=== PATIENT | female | born 1975 | race Caucasian/White ===

== ENCOUNTER → 2016-07-29 | Outpatient (REF) | payer BC, OTHER ==
[~2016-07-29] MED LIST: COLA100C PO; IBUP-1114 PO; IBUP600T26 PO; LEVO25TA5 PO; LORT1TAB2 PO; LORT5TAB PO; PRENTAB9 PO; RANI1TAB6 PO; ZOFR4TAB3 PO
== END ==
LOC: M LAB REF 13:18
PROVIDERS: ATTEND Obstetrics & Gynecology
DX: Z12.4 Encounter for screening for malignant neoplasm of cervix (principal); R87.610 Atypical squamous cells of undetermined significance on cytologic smear of cervix (ASC-US)

== ENCOUNTER → 2016-08-17 | Outpatient (REF) | payer BC, OTHER | LOC: M LAB REF 09:26 | PROVIDERS: ATTEND Physician Assistant | DX: J02.9 Acute pharyngitis, unspecified (principal) ==

== ENCOUNTER 2016-10-07 17:03 | Emergency (ER) | payer BC, OTHER ==
[~2016-10-07] VITALS: Ht 154.9 cm; Wt 99.8 kg
[2016-10-07] MEDS ORDERED: NS 1,000 ML IV ONE (17:30)
[2016-10-07 18:15] LABS: BASO # 0.1 K/mm3 (0.0-0.2); EOS # 0.7 K/mm3 (0.0-0.50); EOS % 9.2 % (0.0-3.0); LARGE UNSTAINED CELL # 0.1 K/mm3 (0.0-0.4); LARGE UNSTAINED CELL % 1.1 % (0.0-4.0); LYMPH # 1.9 K/mm3 (1.5-4.5); LYMPH % 24.2 % (24.0-44.0); MEAN CORPUSCULAR HEMOGLOBIN 27.5 pg (27.0-33.0); MEAN CORPUSCULAR VOLUME 83.4 fl (80.0-96.0); MONO # 0.3 K/mm3 (0.0-0.8); MONO % 3.7 % (0.0-5.0); NEUTROPHILS # 4.7 K/mm3 (1.8-7.7); NEUTROPHILS % 60.7 % (36.0-66.0); PLATELET COUNT, AUTOMATED 190 k/mm3 (150-450); RED CELL DISTRIBUTION WIDTH 13.4 % (11.5-14.5); WHITE BLOOD COUNT 7.7 K/mm3 (4.0-10.0)
[2016-10-07 18:24] LABS: ANION GAP 6 MEQ/L (8-16); BLOOD UREA NITROGEN 16 MG/DL (7-18); CALCIUM LEVEL 8.1 MG/DL (8.5-10.1); CARBON DIOXIDE LEVEL 29 MEQ/L (21-32); CHLORIDE LEVEL 105 MEQ/L (98-107); GLOMERULAR FILTRATION RATE > 60.0 (>58); GLUCOSE, FASTING 102 MG/DL (70-105); SODIUM LEVEL 140 MEQ/L (136-145)
--- NOTE | 2016-10-07 18:24 | ECGEPIP ---
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
[2016-10-07] MEDS ORDERED: ISOVUE-370 76% 100ML VIAL (Q9967) As Ordered ONE (18:28)
--- NOTE | 2016-10-07 18:59 | REP ---
Clinical: Left upper extremity weakness . Comparison: 09/10/2010 . Findings: The ventricles, sulci, and cisterns are normal in position and appearance. Senior-white differentiation is maintained. No acute intracranial hemorrhage, mass/mass effect, pathology or trauma/injury. No evidence for acute infarction. No extra-axial fluid collection. Calvarium is intact. Paranasal sinuses and mastoid air cells are clear. Impression: Normal noncontrast head CT. No evidence for acute intracranial pathology or trauma/injury. Signed by John Dubois MD 10/07/2016 06:51 P
--- NOTE | 2016-10-07 19:02 | REP ---
Clinical: Left upper extremity weakness. Technique: Axial noncontrast images from the skull base to the thoracic inlet with coronal and sagittal re-formations. Comparison: 09/17/2010. Findings: Straightening of normal lordosis likely secondary to positioning and less likely pain/spasm. Mild age-related degenerative change at the C5-6 level with anterior spurring and minimal endplate sclerosis is appreciated. Very subtle chronic 1 mm anterolisthesis at the C4-5 level is unchanged compared to 2010. There is no evidence for acute fracture / compression injury or subluxation. Posterior elements and spinous processes appear intact. Spinal canal is patent. The paravertebral soft tissues are normal. Evaluation is suboptimal in regards to the intervertebral discs and spinal cord/canal contents. Impression: Minimal stable age-related degenerative changes. No acute fracture / compression injury or subluxation. Evaluation of the intervertebral discs and spinal cord significantly limited and may warrant MRI for further investigation. Signed by John Dubois MD 10/07/2016 06:54 P
--- NOTE | 2016-10-07 19:04 | REP ---
Clinical: Chest pain. Technique: Axial contrast enhanced images from the thoracic inlet to the upper abdomen using 100 ml Isovue 370 intravenous contrast material with multiplanar re-formations. Findings: Satisfactory enhancement of the pulmonary vasculature is achieved and no filling defects are identified to suggest pulmonary embolus. Further evaluation of the mediastinum demonstrates normal thoracic aorta, heart and pericardium. The bilateral lung anderson are well aerated and clear without consolidation pleural effusion or pneumothorax. Tracheobronchial tree is patent. No nodule or mass lesion is identified. No adenopathy noted. Surrounding musculoskeletal structures intact Impression: No evidence for pulmonary embolus. No acute mediastinal or pleural parenchymal process. Signed by John Dubois MD 10/07/2016 06:55 P
[2016-10-07 21:01] VITALS: BP 158/62
== END 2016-10-07 21:04 | disposition home or self-care (01) ==
LOC: M ED 17:53
DX: M79.602 Pain in left arm (principal)
CPT/HCPCS: 70450; 71275; 72125; 80048; 82550; 82553; 85025; 93005; 99283; Q9967

== ENCOUNTER → 2017-03-06 | Outpatient (REF) | payer BC, OTHER ==
[~2017-03-06] MED LIST changes: -COLA100C PO; +COLA100C5 PO; +IBUP-1022 PO; -IBUP600T26 PO
[2017-03-06 19:41] LABS: BASO # 0.1 K/mm3 (0.0-0.2); EOS # 0.1 K/mm3 (0.0-0.50); EOS % 1.9 % (0.0-3.0); LARGE UNSTAINED CELL # 0.1 K/mm3 (0.0-0.4); LARGE UNSTAINED CELL % 1.5 % (0.0-4.0); LYMPH # 1.2 K/mm3 (1.5-4.5); LYMPH % 16.6 % (24.0-44.0); MEAN CORPUSCULAR HEMOGLOBIN 27.9 pg (27.0-33.0); MEAN CORPUSCULAR HGB CONC 33.6 g/dl (32.0-36.5); MEAN CORPUSCULAR VOLUME 82.9 fl (80.0-96.0); MONO # 0.5 K/mm3 (0.0-0.8); MONO % 7.6 % (0.0-5.0); NEUTROPHILS # 4.8 K/mm3 (1.8-7.7); NEUTROPHILS % 71.5 % (36.0-66.0); PLATELET COUNT, AUTOMATED 208 k/mm3 (150-450); WHITE BLOOD COUNT 6.7 K/mm3 (4.0-10.0)
[2017-03-09 09:57] LABS: CONTROL LINE MONO RF C INT CTR LINE PRESENT
== END ==
LOC: M LAB REF 18:46
PROVIDERS: ATTEND Physician Assistant Medical
DX: J02.9 Acute pharyngitis, unspecified (principal)

== ENCOUNTER → 2017-07-25 | Outpatient (REF) | payer BC, OTHER | LOC: M LAB REF 17:38 | DX: J02.9 Acute pharyngitis, unspecified (principal) | CPT/HCPCS: 87081 ==

== ENCOUNTER → 2017-08-10 | Outpatient (REF) | payer BC, OTHER ==
[2017-08-12 14:14] LABS: HPV HYBRID CAPTURE II Negative (Negative)
== END ==
LOC: M LAB REF 14:00
DX: Z12.4 Encounter for screening for malignant neoplasm of cervix (principal)

== ENCOUNTER → 2018-04-30 | Outpatient (REF) | payer BC, OTHER | LOC: M LAB REF 17:05 | DX: J02.9 Acute pharyngitis, unspecified (principal) | CPT/HCPCS: 87081 ==

== ENCOUNTER → 2019-04-27 | Outpatient (REF) | payer BC, OTHER ==
[~2019-04-27] MED LIST changes: +RANI-356 PO; -RANI1TAB6 PO; +ZOFR4TAB14 PO; -ZOFR4TAB3 PO
== END ==
LOC: M SFHCLERA 12:35
PROVIDERS: ATTEND Physician Assistant
DX: J02.9 Acute pharyngitis, unspecified (principal)

== ENCOUNTER → 2019-12-21 | Outpatient (REF) | payer BC ==
[~2019-12-21] MED LIST changes: -RANI-356 PO; +RANI-397 PO
== END ==
LOC: M SFHCWAGY 17:37
PROVIDERS: ATTEND Obstetrics & Gynecology
DX: Z12.4 Encounter for screening for malignant neoplasm of cervix (principal); Z01.419 Encounter for gynecological examination (general) (routine) without abnormal findings

== ENCOUNTER → 2020-01-16 | Outpatient (CLI) | payer BC, OTHER ==
--- NOTE | 2020-01-16 14:18 | REPMRS ---
Patient History The patient states she has not had a clinical breast exam in over a year. Family history of breast cancer in paternal grandmother. 3D TOMOSYNTHESIS WAS PERFORMED. [facility] lifetime risk for breast cancer is 17.8%. SUSHANT Crowell. Digital Woman Screen Mammo: January 16, 2020 - Exam #: [id number] Bilateral CC and MLO view(s) were taken. Technologist: Lolis Hector Technologist FINDINGS: There are scattered fibroglandular densities. There has been no change in the appearance of the mammogram from the prior studies. There is a mild amount of residual fibroglandular tissue which is fairly symmetric. There is no interval development of dominant mass, architectural distortion, or clustered microcalcification suggestive of malignancy. Assessment: BI-RADS/ACR category 1 mammogram. Negative Mammogram. Recommendation Routine screening mammogram in 1 year (for women over age 40). This mammogram was interpreted with the aid of an FDA-approved computer-aided dectection system. Electronically Signed By: Cruz Senior MD 01/16/20 1913
== END ==
LOC: M WHC 12:57
PROVIDERS: ATTEND Obstetrics & Gynecology
DX: Z12.31 Encounter for screening mammogram for malignant neoplasm of breast (principal); Z80.3 Family history of malignant neoplasm of breast

== ENCOUNTER → 2020-01-28 | Outpatient (CLI) | payer BC, OTHER | LOC: M LABSMTC 12:43 | PROVIDERS: ATTEND Family Medicine | DX: Z11.59 Encounter for screening for other viral diseases (principal); Z20.828 Contact with and (suspected) exposure to other viral communicable diseases | CPT/HCPCS: C9803; U0003 ==

== ENCOUNTER → 2020-05-31 | Outpatient (REF) | payer BC, OTHER ==
[2020-06-02 12:06] LABS: ANTINUCLEAR ANTIBODIES DIRECT Negative (Negative)
== END ==
LOC: M LAB REF 16:21
PROVIDERS: ATTEND Physician Assistant Medical
DX: R53.83 Other fatigue (principal); R59.9 Enlarged lymph nodes, unspecified

== ENCOUNTER → 2020-06-23 | Outpatient (CLI) | payer SELFPAY | LOC: M LABSMTC 08:14 | PROVIDERS: ATTEND Pediatrics | DX: Z20.828 Contact with and (suspected) exposure to other viral communicable diseases (principal) ==

== ENCOUNTER 2020-09-02 18:09 | Emergency (ER) | payer BC, OTHER ==
[~2020-09-02] VITALS: Ht 154.9 cm; Wt 104.4 kg
--- NOTE | 2020-09-02 19:03 | REP ---
INDICATION: CHEST PAIN. COMPARISON: 09/11/2015 portable chest TECHNIQUE: AP upright portable FINDINGS: The lung anderson are well inflated without infiltrate, effusion, atelectasis or mass. Heart size is increased even allowing for this portable technique which is similar to the previous study. Left atrium is enlarged with elevated left mainstem bronchus. I see no vascular redistribution or pulmonary edema. The aorta and airway were normal. Bones without acute finding. No free air under the diaphragm. IMPRESSION: Some mild prominence of cardiac silhouette with left atrial enlargement but no vascular redistribution, pleural effusion or acute infiltrate. Bony thorax unremarkable. No free air under the diaphragm. <Electronically signed by Mikey Thornton > 09/02/20 [id number]
[2020-09-02 19:36] LABS: HEMATOCRIT 43.3 % (36.0-47.0); MEAN CORPUSCULAR HGB CONC 32.3 g/dl (32.0-36.5); MEAN CORPUSCULAR VOLUME 83.6 fl (80.0-96.0); RED BLOOD COUNT 5.18 10^6/uL (4.00-5.40); WHITE BLOOD COUNT 6.3 10^3/uL (4.0-10.0)
--- OUTSIDE RECORDS SUMMARY | 2020-09-02 19:43 | CCD | Continuity of Care Document ---
Author Author Lab Schedule, Jessi Rawls Organization Unknown Address [address] [address] Phone Unavailable Care Team Providers Care Acrobatic Dancer Name Role Phone Polo Maurer MD AUTM [phone] Problems Active Problems Provider Date Isolated thyrotropin deficiency Onset: 0 Carpal tunnel syndrome Onset: Social History Type Date Description Comments Sex Unknown ETOH Use Occasionally consumes alcohol Tobacco Use Start: Unknown Patient has never smoked Allergies, Adverse Reactions, Alerts Active Allergies Reaction Severity Comments Date NKDA 10/10/2016 Bee Sting facial edema 01/29/2016 Medications Active Medications SIG Qnty Indications Ordering Provide r Date Famotidine 20mg Tablets 1 by mouth twice a day 60tabs Polo Maurer M.D. 08/03/2019 Miralax 3350NF Powder use 17grams 1 time a day for constipation in juice or water (needs daily). 30Oz Polo Maurer M.D. 01/27/2019 Cielo Allergy 60mg Tablets 1 by mouth as needed 90tabs Polo Maurer M.D. 12/02/2018 Carpal Tunnel Wrist Stabilizer/Small/Med ium Misc use nightly bilaterally. (dispense bilat eral splints) dx bilateral carpal tunnel syndrome 2unmarisel Maurer M.D. 02/23/2017 Epipen 2-Asad 0.3mg/0 .3ML Solution Auto-Inject as directed 1unmarisel Maurer M.D. 015 Levothyroxine Sodium 50mcg Tablets 1 by mouth every day 90tabs Polo Maurer M.D. 12/25/2014 Administration Of Flu Vaccine Inj ection Unknown Medications Administered in Office Medication SIG Qnty Indications Ordering Provider Date Immunization Adminstration,1 Vaccine/Tox oid Injection Polo Maurer M.D. 019 Immunizations CPT Code Status Date Vaccine Lot # [id number] Given 07/27/2018 Influenza Virus Vaccine, Quadrivalent (Cciiv4), Derived From 0 Given 11/22/2013 Influenza Virus Vaccine 32868 Given 05/23/2011 Adacel- Tetanus Diphtheria P ertussis (Age64 & Under) 67161 Given 05/23/2011 Influenza Virus Vaccine 51715 Given 04/12/2010 Influenza Virus Vaccine 94150 Given 03/13/2010 Influenza Virus Vaccine 12489 Given 08/14/2003 Adacel- Tetanus Diphtheria P ertussis (Age64 & Under) Q2037 Given Unknown Fluvirin Virus Vaccine 14138 Refused 06/06/2014 Influenza Virus Vaccine Vital Signs Date Vital Result Comment 08/07/2020 8:11am BP Systolic 124 mmHg BP Diastolic 80 mmHg Heart Rate 68 /min Height 60.0 inches 5'0" Weight 230.00 lb BMI (Body Mass Index) 44.9 kg/m2 05/31/2020 2:08pm BP Systolic 120 mmHg BP Diastolic 82 mmHg Heart Rate 76 /min Height 60.0 inches 5'0" Weight 228.00 lb O2 % BldC Oximetry 96 % RM Air BMI (Body Mass Index) 44.5 kg/m2 Results Test Acquired Date Facility Test Result H/L Range Note Comprehensive Chem Profile 08/06/2020 [facility] Senior Media Planner: Dr Harris Lauren [place], [place] [id number] [phone] Glucose 129 mg/dL High 74 - 99 1 BUN 14 mg/dL 7 - 18 Creatinine 0.9 mg/dL 0.6 - 1.3 Sodium 137 mEq/L 136 - 145 Potassium 4.3 mEq/L 3.5 - 5.1 Chloride 101 mEq/L 98 - 107 Carbon Dioxide 25 mEq/L 21 - 32 Calcium 8.4 mg/dL Low 8.5 - 10.1 2 Alk. Phosphatase 63 mg/dL 46 - 116 Total Bilirubin 0.5 mg/dL 0.2 - 1.0 Ast (Sgot) 12 U/L Low 15 - 37 Alt (SGPT) 21 U/L 12 - 78 Albumin 3.8 g/dL 3.4 - 5.0 Total Protein 7.1 g/dL 6.4 - 8.2 A/G Ratio 1.15 CALC 1.00 - 1.90 GFR >= 60 mL/min >60 GFR >= 60 mL/min >60 3 Lipid Profile 08/06/2020 [facility] Senior Media Planner: Dr Harris Lauren [place] [id number] [phone] Cholesterol 229 mg/dL High 131 - 200 Triglycerides 173 mg/dL High 30 - 150 HDL Cholesterol 44 mg/dL 35 - 60 LDL (Calculated) 150 CALC 50 - 159 Laboratory test finding 08/06/2020 [facility] Senior Media Planner: [place] [address] [phone] Thyroid Stimulating Hormone 2.46 uIU/mL 0.3 6 - 3.74 Antinuclear Antibodies 05/31/2020 [place] [id number] [phone] Antinuclear Antibodies Direct Negative Normal Ne gative 4 Laboratory test finding 05/31/[address] [address] [phone] Rheumatoid Factor Quant < 10.0 IU/mL Normal <15.0 Complete Blood Count 05/31/2020 [facility] Senior Media Planner: [place] [address] [phone] WBC 6.9 x10*3/UL 4.1 - 10.9 RBC 5.27 x10*6/UL 4.20 - 6.30 Hemoglobin 14.4 g/dL 12.0 - 18.0 Hematocrit 43.3 % 37.0 - 51.0 MCV 82.1 fL 80.0 - 97.0 MCH 27.3 pg 26.0 - 32.0 MCHC 33.2 g/dL 31.0 - 38.0 RDW 12.9 % 11.6 - 13.7 PLT 262 x10*3/UL 140 - 440 MPV 9.0 FL 7.8 - 11.0 Lymph % 22.0 % 10.0 - 58.5 Mid % 5.9 % 1.7 - 9.3 Neut % 72.1 % 37.0 - 92.0 Lymph # 1.5 x10*3/UL 0.6 - 4.1 Mid # 0.5 x10*3/UL 0.1 - 0.6 Neut # 4.9 x10*3/UL 2.0 - 7.8 Laboratory test finding 05/31/2020 [facility] Senior Media Planner: Dr Harris Lauren [place], [place] [id number] [phone] Creatine Kinase(CK) 121 U/L 26 - 192 1 100-125 mg/dL PRE-DIABET ES/FASTING >126 mg/dL DIABETES/FASTING 2 NOTE: RESULT VERIFIED. 3 CHRONIC KIDNEY DISEASE STAGI NG PER NKF STAGE I & II GFR >= 60 NORMAL TO MILDLY DECREASED STAGE III GFR 30-59 MODERATELY DECREASED STAGE IV GFR 15-29 SEVERELY DECREASED STAGE V GFR <15 VERY LITTLE GFR LEFT ESRD GFR <15 ON PROMOTIONS REPRESENTATIVE 4 Performed at: RN - [facility] [address] [id number] Senior Media Planner: Marlen Gutierrez MD, Phone: [phone] Procedures Description No Information Available Medical Devices Description No Information Available Encounters Type Date Location Provider Dx Diagnosis Office Visit 05/31/2020 2:00p [facility] EFRAIN Bailey JR R59.9 Enlarged lymph nodes, unspec ified E78.5 Hyperlipidemia, unspecified Assessments Date Code Description Provider 05/31/2020 R59.9 Enlarged lymph nodes, unspecifie d EFRAIN Monroe JR 05/31/2020 E78.5 Hyperlipidemia, unspecified RobEFRAIN Keene JR Plan of Treatment No Information Available Functional Status Description No Information Available Mental Status Description No Information Available Referrals Refer to Reason for Referral Status Appt Date Mili Crabtree DO BUSINESS PRACTICES OFFICER CONSULT FOR BREAST REDUCTION Sent [facility] Plastic Surgery [address] [place] [address] [phone]
--- OUTSIDE RECORDS SUMMARY | 2020-09-02 19:43 | CCD | Continuity of Care Document ---
Author Author Jessi SWANSON DO Organization Unknown Address [address] [place] [address] Phone [phone] Care Team Providers Care Overseer Kosher Kitchen Name Role Phone AUTM Unavailable Polo Maurer M.D. AUTM [phone] Problems Active Problems Provider Date Gallbladder calculus with acute cholecystitis and no o bstruction Teodoro Swann M.D. Onset: 12/14/2013 Social History Type Date Description Comments Sex Female ETOH Use Denies alcohol use Tobacco Use Start: Unknown Patient has never smoked LYN: 05/14/2016 Estimated Date of Delivery Based on 1st Ultrasound Allergies, Adverse Reactions, Alerts Active Allergies Reaction Severity Comments Date Bee Sting 12/14/2013 Medications Description No Active Medications Immunizations CPT Code Status Date Vaccine Lot # [id number] Given 04/07/2016 Influenza Vaccine (Fluzone) Administered Age 3 And Older [address] Given 03/18/2016 Tetanus, Diphthe estela Toxoids/Acellular Pertussis Vaccine 7 Or > Vital Signs Date Vital Result Comment 08/24/2020 1:12pm BP Systolic 128 mmHg BP Diastolic 76 mmHg Heart Rate 84 /min Respiratory Rate 16 /min Body Temperature 97.0 F Height 61 inches 5'1" Weight 230.00 lb BMI (Body Mass Index) 43.5 kg/m2 [place] Body Weight 105 lb Weight 104.328 kg BSA (Body Surface Area) 2.00 m2 08/10/2017 8:03am BP Systolic 108 mmHg BP Diastolic 76 mmHg Height 215 inches 17'11" Weight 61.00 lb BMI (Body Mass Index) 0.9 kg/m2 [place] Body Weight 875 lb Weight 27.670 kg BSA (Body Surface Area) 2.84 m2 Results Description No Information Available Procedures Description No Information Available Medical Devices Description No Information Available Encounters Description No Information Available Assessments Description No Information Available Plan of Treatment No Information Available Functional Status Description No Information Available Mental Status Description No Information Available Referrals Description No Information Available
--- OUTSIDE RECORDS SUMMARY | 2020-09-02 19:43 | CCD | Continuity of Care Document ---
Author Author Jessi MAURER M.D. Organization Unknown Address [address] [facility] [address] [place] [address] Phone [phone] Care Team Providers Care Digital Proofing And Platemaker Name Role Phone Polo Maurer MD [facility] [phone] Problems Active Problems Provider Date Isolated thyrotropin [...] eral splints) dx bilateral carpal tunnel syndrome 2units Polo Maurer M.D. 02/23/2017 Epipen 2-Asad 0.3mg/0 .3ML Solution Auto-Inject as directed 1units Polo Maurer M.D. 015 Levothyroxine Sodium 50mcg Tablets 1 by mouth every day 90tabs Polo Maurer M.D. 12/25/2014 Administration Of Flu Vaccine Inj ection Unknown Medications Administered in Office Medication SIG Qnty Indications Ordering Provider Date Immunization Adminstration,1 Vaccine/Tox oid Injection Polo Maurer M.D. 019 Immunizations CPT Code Status Date Vaccine Lot # [id number] Given 07/27/2018 Influenza Virus Vaccine, Quadrivalent (Cciiv4), Derived From 5 Given 11/22/2013 Influenza Virus Vaccine 79097 Given 05/23/2011 Adacel- Tetanus Diphtheria P ertussis (Age64 & Under) 33867 Given 05/23/2011 Influenza Virus Vaccine 21238 Given 04/12/2010 Influenza Virus Vaccine 89582 Given 03/13/2010 Influenza Virus Vaccine 27133 Given 08/14/2003 Adacel- Tetanus Diphtheria P ertussis (Age64 & Under) Q2037 Given Unknown Fluvirin Virus Vaccine 31719 Refused 06/06/2014 Influenza Virus Vaccine Vital Signs [...] H/L Range Note Comprehensive Chem Profile 08/06/2020 [facility] County Commissioner: [place] [address] [phone] Glucose 129 mg/dL High 74 - 99 [...] 60 mL/min >60 3 Lipid Profile 08/06/2020 [facility] County Commissioner: Dr Harris [place] [id number] [phone] Cholesterol 229 mg/dL High 131 - 200 Triglycerides 173 mg/dL High 30 - 150 HDL Cholesterol 44 mg/dL 35 - 60 LDL (Calculated) 150 CALC 50 - 159 Laboratory test finding 08/06/2020 [facility] County Commissioner: [place] [address] [phone] Thyroid Stimulating Hormone 2.46 uIU/mL 0.3 6 - 3.74 A1c 08/06/2020 [facility] County Commissioner: [place] [address] [phone] Hba1c 5.8 % High <5.7 4 Est Avg Glucose 120 mg/dL High 60 - 110 Antinuclear Antibodies 05/31/2020 [place] [id number] [phone] Antinuclear Antibodies Direct Negative Normal Ne gative 5 Laboratory test finding 05/31/[address] [address] [phone] Rheumatoid Factor Quant < 10.0 IU/mL Normal <15.0 Complete Blood Count 05/31/2020 [facility] County Commissioner: [place] [address] [phone] WBC 6.9 x10*3/UL 4.1 - 10.9 RBC [...] 2.0 - 7.8 Laboratory test finding 05/31/2020 [facility] County Commissioner: [place] [address] [phone] Creatine Kinase(CK) 121 U/L 26 - 192 1 100-125 mg/dL PRE-DIABET ES/FASTING >126 mg/dL DIABETES/FASTING 2 NOTE: RESULT VERIFIED. 3 CHRONIC KIDNEY DISEASE STAGI NG PER NKF STAGE I & II GFR >= 60 NORMAL TO MILDLY DECREASED STAGE III GFR 30-59 MODERATELY DECREASED STAGE IV GFR 15-29 SEVERELY DECREASED STAGE V GFR <15 VERY LITTLE GFR LEFT ESRD GFR <15 ON MANAGER FIELD SERVICE 4 Lab Result Notes: Pre-Diabetes 5.7 - 6.4 % Diabetes = or > 6.5% 5 Performed at: RN - [facility] [address] [id number] County Commissioner: Marlen Gutierrez MD, Phone: [phone] Procedures Description No Information Available Medical Devices Description No Information Available Encounters Type Date Location Provider Dx Diagnosis Office Visit 08/07/2020 8:00a [facility] Z00.00 Encntr for general adult medical exam w/ o abnormal findings R59.9 Enlarged lymph nodes, unspec ified E78.5 Hyperlipidemia, unspecified E03.9 Hypothyroidism, unspecified K21.9 Gastro-esophageal reflux dis ease without esophagitis Z91.030 Bee allergy status G56.03 Carpal tunnel syndrome, bila teral upper limbs K59.00 Constipation, unspecified J30.9 Allergic rhinitis, unspecifi ed R68.2 Dry mouth, unspecified R73.09 Other abnormal glucose Office Visit 05/31/2020 2:00p [facility] PA R59.9 Enlarged lymph nodes, unspec ified E78.5 Hyperlipidemia, unspecified Assessments Date Code Description Provider 08/07/2020 Z00.00 Encounter for genera l adult medical examination without abnormal findings Polo Maurer M.D. 08/07/2020 R59.9 Enlarged lymph nodes, unspecifie d Polo Maurer M.D. 08/07/2020 E78.5 Hyperlipidemia, unspecified Margarette Maurer M.D. 08/07/2020 E03.9 Hypothyroidism, unspecified Margarette Maurer M.D. 08/07/2020 K21.9 Gastro-esophageal reflux disease without esophagitis Polo Maurer M.D. 08/07/2020 Z91.030 Bee allergy status Polo lamb M.D. 08/07/2020 G56.03 Carpal tunnel syndrome, bilatera l upper limbs Polo Maurer M.D. 08/07/2020 K59.00 Constipation, unspecified Polo Maurer M.D. 08/07/2020 J30.9 Allergic rhinitis, unspecified J bernardo Maurer M.D. 08/07/2020 R68.2 Dry mouth, unspecified Polo Maurer M.D. 08/07/2020 R73.09 Other abnormal glucose Polo Maurer M.D. 08/06/2020 E03.9 Hypothyroidism, unspecified Margarette Maurer M.D. 08/06/2020 E03.9 Hypothyroidism, unspecified Lab Schedule 08/06/2020 E78.5 Hyperlipidemia, unspecified Margarette Maurer M.D. 08/06/2020 E78.5 Hyperlipidemia, unspecified Lab Schedule 08/06/2020 R73.09 Other abnormal glucose Polo Maurer M.D. 08/06/2020 R73.09 Other abnormal glucose Lab Sched ule 08/06/2020 Z00.00 Encounter for genera l adult medical examination without abnormal findings Polo Maurer M.D. 08/06/2020 Z00.00 Encounter for genera l adult medical examination without abnormal findings Lab Schedule 05/31/2020 R59.9 Enlarged lymph nodes, unspecifie d EFRAIN Monroe JR 05/31/2020 E78.5 Hyperlipidemia, unspecified [place] EFRAIN Garcia JR Plan of Treatment Future Appointment(s):* 08/08/2021 8:00 am - [facility] * 02/06/2021 7:40 am - Lab Schedule at [facility] * 02/07/2021 8:00 am - Polo Maurer M.D. at [facility] 08/07/2020 - Polo Maurer M.D.* Z00.00 Encntr for general adult medical exam w/o abnormal findings * R59.9 Enlarged lymph nodes, unspecified * E78.5 Hyperlipidemia, unspecified * E03.9 Hypothyroidism, unspecified * K21.9 Gastro-esophageal reflux disease without esophagitis * Z91.030 Bee allergy status * G56.03 Carpal tunnel syndrome, bilateral upper limbs * K59.00 Constipation, unspecified * J30.9 Allergic rhinitis, unspecified * R68.2 Dry mouth, unspecified * R73.09 Other abnormal glucose * * Comments:* 1. Annual wellness visit: Well education was done. She will receive her Covid-19 vaccine appropriately. Her last Tdap shot was in 2010 and will have a new one after Covid-19 vaccine. She follows with Dr. Burgess for Humanities Professor care. She is up to date with her breast exam. She will continue to follow up appropriately.2. Enlarged lymph nodes: Stable and not painful. Discussed about this in detail. Evaluated at urgent care prior. It is reassuring sign that it goes away. We will continue to monitor.3. Hyperlipidemia: Discussed about her lipids in detail. Slight elevation in cholesterol. Patient's TG's are somewhat elevated. She will continue to make dietary changes. We will continue to monitor.4. Hypothyroidism: Normal TSH, continue on present dose and will monitor.5. Gastro-esophageal reflux disease without esophagitis: Controlled with occasional use of H2 kavin.6. Bee allergy status: Education was done. She does have Epi Pen if she has issues. She is aware of the risks of a sting and possible catastrophic events. She will monitor and avoid this whenever possible.7. Carpal tunnel syndrome, bilateral upper limbs: Doing well after surgery. She will follow up with Dr. Ford as needed.8. Constipation: Continues to have excellent results with daily Miralax. She will let us know if she has new problems or issues.9. Allergic rhinitis: Good results with occasional OTC medication.10. Dry mouth: Possible etiology discussed with the patient in detail. All labs are reassuring including inflammatory markers which were done on 05/31/2020 to rule out sicca syndrome was normal. We will monitor.11. Other abnormal glucose: Increased glucose. We will add on HgbA1c today.12. Nasal congestion: Has some nasal congestion. I have encouraged her to use Flonase Sensimist twice a day and to apply Vaseline on the nasal septum if sores. Patient will let me know how she is doing, if her symptoms are not improved, we will put her on antibiotic.13. Skin lesions: Appears to be cyst on her back. We discussed that Dermatology at [facility] is currently not accepting any referral. I gave her information about [facility] who also does take care of skin issues here as well as about [facility] Nurse Practitioner.Ongoing cares: Education was given on Covid-19 vaccine, which she will get appropriately. I am going to see her again in 5-6 months with CMP, lipids, TSH and HgbA1c. If she has new problems or issues sooner she will let us k now. Functional Status Description No Information Available Mental Status Description No Information Available Referrals Refer to Reason for Referral Status Appt Date Mili Crabtree DO FISH HATCHERY WORKER CONSULT FOR BREAST REDUCTION Sent [facility] Plastic Surgery [address] [place] [address] [phone]
--- OUTSIDE RECORDS SUMMARY | 2020-09-02 19:43 | CCD | Continuity of Care Document ---
Author Author Lab Schedule, Jessi Lamb Organization Unknown Address [address] [address] Phone Unavailable Care Team Providers Care Middle School Teacher Name Role Phone Polo Maurer MD [facility] [phone] Problems Active Problems Provider Date Isolated thyrotropin [...] CPT Code Status Date Vaccine Lot # [id number] Given 07/27/2018 Influenza Virus Vaccine, Quadrivalent (Cciiv4), Derived From 5 Given 11/22/2013 Influenza Virus Vaccine 79912 Given 05/23/2011 Adacel- Tetanus Diphtheria P ertussis (Age64 & Under) 48128 Given 05/23/2011 Influenza Virus Vaccine 35389 Given 04/12/2010 Influenza Virus Vaccine 89478 Given 03/13/2010 Influenza Virus Vaccine 10721 Given 08/14/2003 Adacel- Tetanus Diphtheria P ertussis (Age64 & Under) Q2037 Given Unknown Fluvirin Virus Vaccine 90300 Refused 06/06/2014 Influenza Virus Vaccine Vital Signs [...] H/L Range Note Comprehensive Chem Profile 08/06/2020 [place] [facility] Signal Operator: Dr Harris Lauren [place], [place] [id number] [phone] Glucose 129 mg/dL High 74 - 99 [...] 60 mL/min >60 3 Lipid Profile 08/06/2020 [facility] Signal Operator: Dr Harris Lauren [place] [id number] [phone] Cholesterol 229 mg/dL High 131 - 200 Triglycerides 173 mg/dL High 30 - 150 HDL Cholesterol 44 mg/dL 35 - 60 LDL (Calculated) 150 CALC 50 - 159 Laboratory test finding 08/06/2020 [facility] Signal Operator: [place] [address] [phone] Thyroid Stimulating Hormone 2.46 uIU/mL 0.3 6 - 3.74 A1c 08/06/2020 [facility] Signal Operator: [place] [address] [phone] Hba1c 5.8 % High <5.7 4 Est Avg Glucose 120 mg/dL High 60 - 110 Antinuclear Antibodies 05/31/2020 [place] [id number] [phone] Antinuclear Antibodies Direct Negative Normal Ne gative 5 Laboratory test finding 05/31/[address] [address] [phone] Rheumatoid Factor Quant < 10.0 IU/mL Normal <15.0 Complete Blood Count 05/31/2020 [facility] Signal Operator: [place] [address] [phone] WBC 6.9 x10*3/UL 4.1 - 10.9 RBC [...] 2.0 - 7.8 Laboratory test finding 05/31/2020 [facility] Signal Operator: [place] [address] [phone] Creatine Kinase(CK) 121 U/L 26 - 192 1 100-125 mg/dL PRE-DIABET ES/FASTING >126 mg/dL DIABETES/FASTING 2 NOTE: RESULT VERIFIED. 3 CHRONIC KIDNEY DISEASE STAGI NG PER NKF STAGE I & II GFR >= 60 NORMAL TO MILDLY DECREASED STAGE III GFR 30-59 MODERATELY DECREASED STAGE IV GFR 15-29 SEVERELY DECREASED STAGE V GFR <15 VERY LITTLE GFR LEFT ESRD GFR <15 ON CEMENT STORAGE WORKER 4 Lab Result Notes: Pre-Diabetes 5.7 - 6.4 % Diabetes = or > 6.5% 5 Performed at: RN - [facility] [address] [id number] Signal Operator: Marlen Gutierrez MD, Phone: [phone] Procedures Description No Information Available Medical Devices Description No Information Available Encounters Type Date Location Provider Dx Diagnosis Office Visit 05/31/2020 2:00p [facility] R59.9 Enlarged lymph nodes, unspec ified E78.5 Hyperlipidemia, unspecified Assessments Date Code Description Provider 08/07/2020 Z00.00 Encounter for genera l adult medical examination without abnormal findings oPlo Maurer M.D. 08/07/2020 R59.9 Enlarged lymph nodes, [...] Maurer M.D. 08/07/2020 J30.9 Allergic rhinitis, unspecified Moses Maurer M.D. 08/07/2020 R68.2 Dry mouth, unspecified Polo Maurer M.D. 08/07/2020 R73.09 Other abnormal glucose Polo Maurer M.D. 08/06/2020 E03.9 Hypothyroidism, unspecified Margarette Maurre M.D. 08/06/2020 E03.9 Hypothyroidism, unspecified Lab Schedule [...] EFRAIN Monroe JR 05/31/2020 E78.5 Hyperlipidemia, unspecified EFRAIN Ha JR Plan of Treatment Future Appointment(s):* 08/08/2021 8:00 am - Polo Maurer M.D. at [facility] * 02/06/2021 7:40 am - Lab Schedule at [facility] * 02/07/2021 8:00 am - Polo Maurer M.D. at [facility] 08/07/2020 - Polo Maurer M.D.* Z00.00 [...] mouth, unspecified * R73.09 Other abnormal glucose Functional Status Description No Information Available Mental Status Description No Information Available Referrals Refer to Reason for Referral Status Appt Date Mili Crabtree DO HANDICRAFT OR HOBBY SHOP MANAGER CONSULT FOR BREAST REDUCTION Sent [facility] Plastic Surgery [address] [place] [address] [phone]
--- OUTSIDE RECORDS SUMMARY | 2020-09-02 19:44 | CCD | Continuity of Care Document ---
Author Author Jessi MAURER M.D. Organization Unknown Address [address] [facility] [address] [place] [address] Phone [phone] Care Team Providers Care It Security Manager Name Role Phone Polo Maurer MD [facility] [phone] Problems Active Problems Provider Date Isolated thyrotropin [...] CPT Code Status Date Vaccine Lot # [id number] Given 07/27/2018 Influenza Virus Vaccine, Quadrivalent (Cciiv4), Derived From 4 Given 11/22/2013 Influenza Virus Vaccine 92757 Given 05/23/2011 Adacel- Tetanus Diphtheria P ertussis (Age64 & Under) 87876 Given 05/23/2011 Influenza Virus Vaccine 96167 Given 04/12/2010 Influenza Virus Vaccine 12111 Given 03/13/2010 Influenza Virus Vaccine 86735 Given 08/14/2003 Adacel- Tetanus Diphtheria P ertussis (Age64 & Under) Q2037 Given Unknown Fluvirin Virus Vaccine 94488 Refused 06/06/2014 Influenza Virus Vaccine Vital Signs [...] H/L Range Note Comprehensive Chem Profile 08/06/2020 [place] [facility] Griffith Clerk Funeral Detail: [place] [address] [phone] Glucose 129 mg/dL High 74 - 99 [...] 60 mL/min >60 3 Lipid Profile 08/06/2020 [facility] Clerk Funeral Detail: [place] [address] [phone] Cholesterol 229 mg/dL High 131 - 200 Triglycerides 173 mg/dL High 30 - 150 HDL Cholesterol 44 mg/dL 35 - 60 LDL (Calculated) 150 CALC 50 - 159 Laboratory test finding 08/06/2020 [place] [facility] Clerk Funeral Detail: [place] [address] [phone] Thyroid Stimulating Hormone 2.46 uIU/mL 0.3 6 - 3.74 Antinuclear Antibodies 05/31/2020 [place] [address] [phone] Antinuclear Antibodies Direct Negative Normal Ne gative 4 Laboratory test finding 05/31/[address] [address] [phone] Rheumatoid Factor Quant < 10.0 IU/mL Normal <15.0 Complete Blood Count 05/31/2020 [facility] Clerk Funeral Detail: [place] [address] [phone] WBC 6.9 x10*3/UL 4.1 - 10.9 RBC [...] 2.0 - 7.8 Laboratory test finding 05/31/2020 [place] [facility] Clerk Funeral Detail: Dr Harris Lauren [place], [place] [id number] [phone] Creatine Kinase(CK) 121 U/L 26 - 192 1 100-125 mg/dL PRE-DIABET ES/FASTING >126 mg/dL DIABETES/FASTING 2 NOTE: RESULT VERIFIED. 3 CHRONIC KIDNEY DISEASE STAGI NG PER NKF STAGE I & II GFR >= 60 NORMAL TO MILDLY DECREASED STAGE III GFR 30-59 MODERATELY DECREASED STAGE IV GFR 15-29 SEVERELY DECREASED STAGE V GFR <15 VERY LITTLE GFR LEFT ESRD GFR <15 ON CULTURIST 4 Performed at: RN - [facility] [address] [id number] Clerk Funeral Detail: Marlen Gutierrez MD, Phone: [phone] Procedures Description No Information Available Medical Devices Description No Information Available Encounters Type Date Location Provider Dx Diagnosis Office Visit 05/31/2020 2:00p [facility] EFRAIN Bailey JR R59.9 Enlarged lymph nodes, unspec ified E78.5 Hyperlipidemia, unspecified Assessments Date Code Description Provider 05/31/2020 R59.9 Enlarged lymph nodes, unspecifie d EFRAIN Monroe JR 05/31/2020 E78.5 Hyperlipidemia, unspecified EFRAIN Ha JR Plan of Treatment No Information Available Functional Status Description No Information Available Mental Status Description No Information Available Referrals Refer to Reason for Referral Status Appt Date Mili Crabtree DO REST ROOM MAID CONSULT FOR BREAST REDUCTION Sent [facility] Plastic Surgery [address] [place] [address] [phone]
--- OUTSIDE RECORDS SUMMARY | 2020-09-02 19:44 | CCD | Continuity of Care Document ---
Author Author Jessi AWAN [place] Organization Unknown Address [address] [facility] [address] [place] [address] Phone [phone] Care Team Providers Care [employer] Brakes Name Role Phone Polo [facility]urer MD [facility] [phone] Problems Active Problems Provider Date Isolated thyrotropin [...] CPT Code Status Date Vaccine Lot # 12683 Given 07/27/2018 Influenza Virus Vaccine, Quadrivalent (Cciiv4), Derived From 5 Given 11/22/2013 Influenza Virus Vaccine 41301 Given 05/23/2011 Adacel- Tetanus Diphtheria P ertussis (Age64 & Under) 34001 Given 05/23/2011 Influenza Virus Vaccine 55665 Given 04/12/2010 Influenza Virus Vaccine 25511 Given 03/13/2010 Influenza Virus Vaccine 20777 Given 08/14/2003 Adacel- Tetanus Diphtheria P ertussis (Age64 & Under) Q2037 Given Unknown Fluvirin Virus Vaccine 86833 Refused 06/06/2014 Influenza Virus Vaccine Vital Signs Date Vital Result Comment 05/31/2020 2:08pm BP Systolic 120 mmHg BP Diastolic 82 mmHg Heart Rate 76 /min Height 60.0 inches 5'0" Weight 228.00 lb O2 % BldC Oximetry 96 % RM Air BMI (Body Mass Index) 44.5 kg/m2 08/03/2019 8:04am BP Systolic 124 mmHg BP Diastolic 68 mmHg Heart Rate 72 /min Height 60.0 inches 5'0" Weight 210.00 lb BMI (Body Mass Index) 41.0 kg/m2 Results Test Acquired Date Facility Test Result H/L Range Note Antinuclear Antibodies 05/31/[address] [address] [phone] Antinuclear Antibodies Direct Negative Normal Ne gative 1 Laboratory test finding 05/31/[address] [address] [phone] Rheumatoid Factor Quant < 10.0 IU/mL Normal <15.0 Complete Blood Count 05/31/2020 [facility] Laboratory Specialist: [place] [address] [phone] WBC 6.9 x10*3/UL 4.1 - 10.9 RBC [...] 2.0 - 7.8 Laboratory test finding 05/31/2020 [place] [facility] ge[facility] huang Laboratory Specialist: Dr Harris Lauren [place], [place] [address] [phone] Creatine Kinase(CK) 121 U/L 26 - 192 Coronavirus 2019 Nasopharygeal 01/28/[address] [address] [phone] Coronavirus 2019 Nasopharygeal This test was de <SEE N OTE> 2 1 Performed at: [address] [id number] Laboratory Specialist: Marlen Gutierrez MD, Phone: [phone] This test was developed and its performance characteristics determined by [facility]. This test has not been FDA cleared or approved. This test has been authorized by FDA under an Emergency Use Authorization (EUA). This test is only authorized for the duration of time the declaration that circumstances exist justifying the authorization of the emergency use of in vitro diagnostic tests for detection of SARS-CoV-2 virus and/or diagnosis of COVID-19 infection under section 564(b)(1) of the Act, 21 U.S.C. 360bbb-3(b)(1), unless the authorization is terminated or revoked sooner. When diagnostic testing is negative, the possibility of a false negative result should be considered in the context of a patient's recent exposures and the presence of clinical signs and symptoms consistent with COVID-19. An individual without symptoms of COVID-19 and who is not shedding SARS-CoV-2 virus would expect to have a negative (not detected) result in this assay. Performed at: - [facility] [id number] Laboratory Specialist: Marlen Gutierrez MD, Phone: [phone] Not Detected Procedures Description No Information Available Medical Devices Description No Information Available Encounters Description No Information Available Assessments Description No Information Available Plan of Treatment Future Appointment(s):* 08/07/2020 8:00 am - Polo Maurer M.D. at [facility] Functional Status Description No Information Available Mental Status Description No Information Available Referrals Description No Information Available
--- OUTSIDE RECORDS SUMMARY | 2020-09-02 19:44 | CCD | Continuity of Care Document ---
Author Author Jessi SALAS M.D. Organization Unknown Address [address] [facility] [address] [place] [address] Phone [phone] Care Team Providers Care International Affairs Vice President Name Role Phone Polo Salas MD [facility] [phone] Problems Active Problems Provider Date Isolated thyrotropin [...] by mouth twice a day 60tabs Polo Salas M.D. 08/03/2019 Miralax 3350NF Powder use 17grams 1 time a day for constipation in juice or water (needs daily). 30Oz Polo Salas M.D. 01/27/2019 Cielo Allergy 60mg Tablets 1 by mouth as needed 90tabs Polo Salas M.D. 12/02/2018 Carpal Tunnel Wrist Stabilizer/Small/Med ium Misc use nightly bilaterally. (dispense bilat eral splints) dx bilateral carpal tunnel syndrome 2units Polo Salas M.D. 02/23/2017 Epipen 2-Asad 0.3mg/0 .3ML Solution Auto-Inject as directed 1units Polo Salas M.D. 015 Levothyroxine Sodium 50mcg Tablets 1 by mouth every day 90tabs Polo Salas M.D. 12/25/2014 Administration Of Flu Vaccine Inj ection Unknown Medications Administered in Office Medication SIG Qnty Indications Ordering Provider Date Immunization Adminstration,1 Vaccine/Tox oid Injection Polo Salas M.D. 019 Immunizations CPT Code Status Date Vaccine Lot # [id number] Given 07/27/2018 Influenza Virus Vaccine, Quadrivalent (Cciiv4), Derived From 7 Given 11/22/2013 Influenza Virus Vaccine 24892 Given 05/23/2011 Adacel- Tetanus Diphtheria P ertussis (Age64 & Under) 33039 Given 05/23/2011 Influenza Virus Vaccine 28082 Given 04/12/2010 Influenza Virus Vaccine 81931 Given 03/13/2010 Influenza Virus Vaccine 56074 Given 08/14/2003 Adacel- Tetanus Diphtheria P ertussis (Age64 & Under) Q2037 Given Unknown Fluvirin Virus Vaccine 00105 Refused 06/06/2014 Influenza Virus Vaccine Vital Signs [...] Result H/L Range Note Antinuclear Antibodies 05/31/2020 [facility] [address] [place] [address] [phone] Antinuclear Antibodies Direct Negative Normal Ne gative 1 Laboratory test finding 05/31/2020 [facility] [address] [place] [address] [phone] Rheumatoid Factor Quant < 10.0 IU/mL Normal <15.0 Complete Blood Count 05/31/2020 [facility] Computer Science Teacher: [place] [address] [phone] WBC 6.9 x10*3/UL 4.1 - 10.9 RBC [...] 2.0 - 7.8 Laboratory test finding 05/31/2020 [place] ge[facility] Rodriguez Computer Science Teacher: Dr Harris Lauren [place], [place] [address] [phone] Creatine Kinase(CK) 121 U/L 26 - 192 Coronavirus 2019 Nasopharygeal 01/28/[address] [id number] [phone] Coronavirus 2019 Nasopharygeal This test was de <SEE N OTE> 2 1 Performed at: [address] [id number] Computer Science Teacher: Marlen Gutierrez MD, Phone: [phone] This test was developed and its performance characteristics determined by [facility]. This test has not been FDA cleared [...] result in this assay. Performed at: - [facility] [id number] Computer Science Teacher: Marlen Gutierrez MD, Phone: [phone] Not Detected Procedures Description No Information Available Medical Devices Description No Information Available Encounters Type Date Location Provider Dx Diagnosis Office Visit 05/31/2020 2:00p [facility] EFRAIN Bailey JR R59.9 Enlarged lymph nodes, unspec ified E78.5 Hyperlipidemia, unspecified Assessments Date Code Description Provider 05/31/2020 R59.9 Enlarged lymph nodes, unspecifie d EFRAIN Monroe JR 05/31/2020 E78.5 Hyperlipidemia, unspecified EFRAIN Ha JR Plan of Treatment Future Appointment(s):* 08/07/2020 8:00 am - Polo Salas M.D. at [facility] 08/03/2019 - Polo Salas M.D.* E03.9 Hypothyroidism, unspecified * E78.5 Hyperlipidemia, unspecified * K21.9 Gastro-esophageal reflux disease without esophagitis * Z91.030 Bee allergy status * K59.00 Constipation, unspecified * Functional Status Description No Information Available Mental Status Description No Information Available Referrals Description No Information Available
--- OUTSIDE RECORDS SUMMARY | 2020-09-02 19:44 | CCD ---
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 Name Role Phone Dutch SERRANO Unavailable Unavailable PICKERAL JR, J MARIA DEL CARMEN PA-C Unavailable Unavailable PICKERAL JR, J MARIA DEL CARMEN PA-C Unavailable Unavailable PICKERAL JR, J MARIA DEL CARMEN PA-C Unavailable Unavailable PICKERAL JR, J MARIA DEL CARMEN PA-C Unavailable Unavailable PICKERAL JR, J MARIA DEL CARMEN PA-C Unavailable Unavailable PICKERAL JR, J MARIA DEL CARMEN PA-C Unavailable Unavailable PICKERAL JR, J MARIA DEL CARMEN PA-C Unavailable Unavailable PICKERAL JR, J MARIA DEL CARMEN PA-C Unavailable Unavailable PICKERAL JR, J MARIA DEL CARMEN PA-C Unavailable Unavailable PICKERAL JR, J MARIA DEL CARMEN PA-C Unavailable Unavailable PICKERAL JR, J MARIA DEL CARMEN PA-C Unavailable Unavailable PICKERAL JR, J MARIA DEL CARMEN PA-C Unavailable Unavailable PICKERAL JR, J MARIA DEL CARMEN PA-C Unavailable Unavailable PICKERAL JR, J MARIA DEL CARMEN PA-C Unavailable Unavailable PICKERAL JR, J MARIA DEL CARMEN PA-C Unavailable Unavailable PICKERAL JR, J MARIA DEL CARMEN PA-C Unavailable Unavailable PICKERAL JR, J MARIA DEL CARMEN PA-C Unavailable Unavailable PICKERAL JR, J MARIA DEL CARMEN PA-C Unavailable Unavailable PICKERAL JR, J MARIA DEL CARMEN PA-C Unavailable Unavailable PICKERAL JR, J MARIA DEL CARMEN PA-C Unavailable Unavailable PICKERAL JR, J MARIA DEL CARMEN PA-C Unavailable Unavailable Laz Maurer MD Unavailable Unavailable Laz Maurer MD Unavailable Unavailable Laz Maurer MD Unavailable Unavailable Laz Maurer MD Unavailable Unavailable Laz Maurer MD Unavailable Unavailable White F Polo Unavailable Unavailable White F Polo Unavailable Unavailable White F Polo Unavailable Unavailable White, F Polo Unavailable Unavailable White F Polo Unavailable Unavailable White F Polo Unavailable Unavailable White F Polo Unavailable Unavailable White F Polo Unavailable Unavailable White, F Polo Unavailable Unavailable White, F Polo Unavailable Unavailable White, F Polo Unavailable Unavailable White, F Polo Unavailable Unavailable White F Polofrancisca SANDERS Unavailable Unavailable White, F Polo Unavailable Unavailable White, F Polo Unavailable Unavailable White, F Polo Unavailable Unavailable White, F Polo Unavailable Unavailable White, F Polo Unavailable Unavailable White, F Polo Unavailable Unavailable White, F Polo Unavailable Unavailable White, F Polo Unavailable Unavailable White, F Polo Unavailable Unavailable White F Polofrancisca SANDERS Unavailable Unavailable White, F Polofrancisca SANDERS Unavailable Unavailable White, F Polo SANDERS Unavailable Unavailable White, F Polo SANDERS Unavailable Unavailable White F Polo SANDERS Unavailable Unavailable White F Polo SANDERS Unavailable Unavailable White F Polofrancisca SANDERS Unavailable Unavailable White F Polo SANDERS Unavailable Unavailable White F Polo SANDERS Unavailable Unavailable White F Polo SANDERS Unavailable Unavailable White F Polo SANDERS Unavailable Unavailable White F Polo SANDERS Unavailable Unavailable White F Polo SANDERS Unavailable Unavailable Libertad F Polo SANDERS Unavailable Unavailable White F Polo SANDERS Unavailable Unavailable Libertad F Polo SANDERS Unavailable Unavailable White F Polo SANDERS Unavailable Unavailable White F Polo SANDERS Unavailable Unavailable White F Polo SANDERS Unavailable Unavailable White F Polo SANDERS Unavailable Unavailable Libertad F Polo SANDERS Unavailable Unavailable Libertad F Polo SANDERS Unavailable Unavailable Libertad F Polo SANDERS Unavailable Unavailable Libertad F Polo SANDERS Unavailable Unavailable White F Polo SANDERS Unavailable Unavailable White F Polo SANDERS Unavailable Unavailable White F oPlo SANDERS Unavailable Unavailable White F Polo SANDERS Unavailable Unavailable Libertad F Polo SANDERS Unavailable Unavailable Libertad F Polo SANDERS Unavailable Unavailable Libertad F Polo SANDERS Unavailable Unavailable Libertad F Polo SANDERS Unavailable Unavailable Libertad F Polo SANDERS Unavailable Unavailable White F Polo SANDERS Unavailable Unavailable White F Polo SANDERS Unavailable Unavailable Libertad F Polo SANDERS Unavailable Unavailable Libertad F Polo SANDERS Unavailable Unavailable Libertad F Polo SANDERS Unavailable Unavailable Libertad F Polo SANDERS Unavailable Unavailable Libertad F Polo SANDERS Unavailable Unavailable Libertad F Polo MD Unavailable Unavailable White, F Polo MD Unavailable Unavailable White, F Polo MD Unavailable Unavailable White, F Polo MD Unavailable Unavailable White, F Polo MD Unavailable Unavailable White, F Polo MD Unavailable Unavailable White, F Polo MD Unavailable Unavailable RING, K ATILIO PA Unavailable Unavailable RING, K ATILIO PA Unavailable Unavailable RING, K ATILIO PA Unavailable Unavailable RING, K ATILIO PA Unavailable Unavailable RING, K ATILIO PA Unavailable Unavailable RING, K ATILIO PA Unavailable Unavailable RING, K ATILIO PA Unavailable Unavailable RING, K ATILIO PA Unavailable Unavailable RING, K ATILIO PA Unavailable Unavailable RING, K ATILIO PA Unavailable Unavailable RING, K ATILIO PA Unavailable Unavailable RING, K ATILIO PA Unavailable Unavailable RING, K ATILIO PA Unavailable Unavailable RING, K ATILIO PA Unavailable Unavailable RING, K ATILIO PA Unavailable Unavailable RING, K ATILIO PA Unavailable Unavailable RING, K ATILIO PA Unavailable Unavailable RING, K ATILIO PA Unavailable Unavailable RING, K ATILIO PA Unavailable Unavailable RING, K ATILIO PA Unavailable Unavailable RING, K ATILIO PA Unavailable Unavailable Re-disclosure Warning The records that you are about to access may contain information from federally-assisted alcohol or drug abuse programs. If such information is present, then the following federally mandated warning applies: This information has been disclosed to you from records protected by federal confidentiality rules (42 CFR part 2). The federal rules prohibit you from making any further disclosure of this information unless further disclosure is expressly permitted by the written consent of the person to whom it pertains or as otherwise permitted by 42 CFR part 2. A general authorization for the release of medical or other information is NOT sufficient for this purpose. The Federal rules restrict any use of the information to criminally investigate or prosecute any alcohol or drug abuse patient.The records that you are about to access may contain highly sensitive health information, the redisclosure of which is protected by Article 27-F of the [place] State Public Health law. If you continue you may have access to information: Regarding HIV / AIDS; Provided by facilities licensed or operated by the [place] Office of Mental Health; or Provided by the [place] Office for People With Developmental Disabilities. If such information is present, then the following [place] mandated warning applies: This information has been disclosed to you from confidential records which are protected by state law. State law prohibits you from making any further disclosure of this information without the specific written consent of the person to whom it pertains, or as otherwise permitted by law. Any unauthorized further disclosure in violation of state law may result in a fine or custodial sentence or both. A general authorization for the release of medical or other information is NOT sufficient authorization for further disc losure. Allergies and Adverse Reactions Type Description Substance Reaction Status Data Source(s ) Drug Class NO KNOWN ALLERGIES NO KNOWN ALLERGIES [facility] Family History Family Member Name Family Member Gender Family Member Status Date o f Status Description Data Source(s) Unknown Male Problem [facility] ([facility]) Unknown Female Problem [facility] ([facility]) Unknown Female Problem [facility] ([facility]) Encounters Encounter Providers Location Date Indications Data Source(s ) Outpatient Attender: Polo Liang 08/07 07:00:00 AM EST MEDENT ([facility] ) Outpatient Attender: MARIA DEL CARMEN Liang 1 07/31/2019 01:00:00 PM EST [facility] ([facility] ) ( GYNANN) [facility] 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 Exam [address] [place] [address] 12/21/2019 12:00:00 AM EDT eCW1 ([facility]) Outpatient Attender: KAVIN SERRANO 10/11/2019 12:00:00 A M [facility] [address] [place] [address] 09/29/2019 12:00:00 AM EDT eCW1 ([facility]) Outpatient Attender: KAVIN SERRANOReferrer: KAVIN GIANG RO [id number] 08/15/2019 12:00:00 AM [facility] Outpatient Referrer: KAVIN SERRANO 08/15/2019 12:0 0:00 AM EST Impingement syndrome of right shoulder [facility] Impingement syndrome of right shoulder Outpatient Referrer: KAVIN SERRANO 08/09/2019 12:00:00 A M [facility] Outpatient Attender: KAVIN SERRANO 08/09/2019 12:00:00 A M [facility] Outpatient Attender: ATILIO Stephen Primary 07/14/2019 07:45:00 AM EST MEDENT ([facility]) Medications Medication Brand Name Start Date Product Form Dose Route Admi nistrative Instructions Pharmacy Instructions Status Indications Reaction Description Data Source(s) Norethindrone Acet-Ethinyl Est 1.5-30 MG-MCG Norethind isreal Acet-Ethinyl Est 1.5- 30 MG-MCG 12/21/2019 12:00:00 AM EDT 1.0 {tablet} ac tive Norethindrone Acet-Ethinyl Est 1.5-30 MG-MCG eCW1 ([facility]) Nystatin 100 UNT/MG Topical Powder Nystatin 317587 UNI T/GM Nystatin 436457 UNIT/GM 09/30/2019 12:00:00 AM EDT active 1 application eCW1 ([facility]) Nystatin 100 UNT/MG Topical Powder Nystatin 641073 UNI T/GM Nystatin 763208 UNIT/GM 09/30/2019 12:00:00 AM EDT 1.0 {application} active Nystatin 871967 UNIT/GM eCW1 ([facility]) Famotidine 20 MG Oral Tablet Famotidine 08/03/2019 12:00:00 AM EST ORAL active MED[facility] ([facility]) cefdinir 300 MG Oral Capsule Cefdinir 07/14/2019 12:00:00 AM EST ORAL active MED[facility] ([facility]) Ofloxacin 3 MG/ML Ophthalmic Solution Ofloxacin (Ophthalmic) 07/14/2019 12:00:00 AM EST OPHTHALMIC active MEDENT ([facility]) Ranitidine 150 MG Oral Tablet ranitidine (ZANTAC) 150 MG tablet ranitidine (ZANTAC) 150 MG tablet 09/21/2018 12:00:00 AM EDT aborted TK 1 T PO BID [facility] Insurance Providers Payer name Policy type / Coverage type Policy ID Covered libertarian ID Covered libertarian's relationship to germain Policy Germain Plan Information BCBS FEDERAL EMPLOYEE PROGRAM [id number] SP [id number] [facility] [id number] SP [id number] SELF PAY ONLY [id number] SP [id number] [facility] O [id number] S [id number] BC BS [place] FEDERAL B [id number] P [id number] BCBS FEDERAL EMPLOYEE PROGRAM [id number] SP [id number] [place] PPO 302/307 [id number] SP [id number] EXCELLUS H [id number] Self [id number] [facility] U [id number] Se lf [id number] [facility] Claims DPT Commercial [id number] Self [id number] Federal BC/BS Commercial [id number] Self [id number] [facility] Claims DPT Commercial [id number] Self [id number] BCBS FEDERAL EMPLOYEE PROGRAM [id number] SP [id number] [facility] [id number] SP [id number] [facility] Commercial [id number] Self [id number] BCBS Federal Plan Commercial [id number] Self [id number] [facility] Claims DPT Commercial [id number] Self [id number] EXCELLUS H [id number] Self [id number] [facility] Maintenance Organization ([facility]) [id number] Self [id number] [facility] Health Maintenance Organization ([facility]) [id number] Self [id number] [facility] Commercial [id number] Self [id number] BCBS Federal Plan Commercial [id number] Self [id number] EXCELLUS BCBS FEDERAL [id number] SP [id number] [facility] Maintenance Organization ([facility]) [id number] Self [id number] [facility] Health Maintenance Organization ([facility]) [id number] Self [id number] [facility] Commercial [id number] Self [id number] BCBS Federal Plan Commercial [id number] Self [id number] [facility] Commercial [id number] Self [id number] BCBS Federal Plan Commercial [id number] Self [id number] [facility] Commercial [id number] Self [id number] BCBS Federal Plan Commercial [id number] Self [id number] [facility] Commercial Self BCBS Federal Plan Commercial Self [facility] Health Maintenance Organization (HMO) Self [facility] Health Maintenance Organization (HMO) Self [facility] Claims DPT Commercial Self Federal BC/BS Commercial [id number] Self [id number] [facility] O [id number] S [id number] [facility] HEALTHCARE [id number] SP [id number] [facility] HEALTH[facility]ARE [id number] SP [id number] [facility] HEALTH[facility]ARE [id number] SP [id number] [facility] Health Plan Medigap Part B Family Depend ent BC/BS (Federal) Commercial Self BC BS [place] FEDERAL [id number] SP [id number] Problems, Conditions, and Diagnoses Code Display Name Description Problem Type Effective Dates Data Source(s) N93.9 [id number] Abnormal uterine bleeding (AUB) Problem 12/21/2019 12:00:00 AM EDT eCW1 ([facility]) M75.41 Impingement syndrome of right shoulder I mpingement syndrome of right shoulder Diagnosis 08/15/2019 07:01:[address] [facility] Surgeries/Procedures Procedure Description Date Indications Data Source(s) SURGERY CASE REQUEST OUTSIDE FACILITY ONLY SURGERY CA SE REQUEST OUTSIDE FACILITY ONLY Routine 08/15/2019 8:49 AM EST Impingement syndrome of right shoulder 08/15/2019 01:49:26 P M EST Impingement syndrome of right shoulder [facility] Impingement syndrome of right shoulder Results ID Date Data Source [id number] 08/08/2020 12:00:00 AM EST [facility] Name Value Range Interpretation Code Description Data Ryann rce(s) Supporting Document(s) SARS-CoV2 Rapid Antigen Negative [facility] This lab was ordered by [facility] and reported by [facility]. ID Date Data Source [id number] 08/06/2020 07:58:00 AM EST MEDENT ([facility]) Name Value Range Interpretation Code Description Data Ryann rce(s) Supporting Document(s) Hemoglobin A1c/Hemoglobin.total in Blood 5.8 % MED[facility] ([facility]) Lab Result Notes: Pre-Diabetes 5.7 - 6.4 % Diabetes = or > 6.5% Glucose mean value [Mass/volume] in Blood Estimated fr om glycated hemoglobin 120 mg/dL 60-110 [facility] ([facility] ) ID Date Data Source [id number] 08/06/2020 07:58:00 AM EST [facility] ([facility]) Name Value Range Interpretation Code Description Data Ryann rce(s) Supporting Document(s) Thyrotropin [Units/volume] in Serum or Plasma by Detec tion limit <= 0.05 mIU/L 2.46 uIU/mL 0.36-3.74 [facility] ([facility] ) ID Date Data Source [id number] 08/06/2020 07:58:00 AM EST [facility] ([facility]) Name Value Range Interpretation Code Description Data Ryann rce(s) Supporting Document(s) Cholesterol in HDL [Mass/volume] in Serum or Plasma 44 mg/dL 35-60 [facility] ([facility]) Triglyceride [Mass/volume] in Serum or Plasma 173 mg/dL 30-150 [facility] ([facility]) Cholesterol [Mass/volume] in Serum or Plasma 229 mg/dL 131-200 [facility] ([facility]) Cholesterol in LDL [Mass/volume] in Serum or Plasma by calcu lation 150 CALC 50-159 [facility] ([facility]) ID Date Data Source [id number] 08/06/2020 07:58:00 AM EST [facility] ([facility]) Name Value Range Interpretation Code Description Data Ryann rce(s) Supporting Document(s) Glucose [Mass/volume] in Serum or Plasma 129 mg/dL 74-99 [facility] ([facility]) 100-125 mg/dL PRE-DIABETES/FASTING >126 mg/dL DIABETES/FASTING Sodium [Moles/volume] in Serum or Plasma 137 meq/L 136-145 [facility] ([facility]) Urea nitrogen [Mass/volume] in Serum or Plasma 14 mg/dL 7-18 [facility] ([facility]) Creatinine 0.9 mg/dL 0.6-1.3 [facility] Potassium [Moles/volume] in Serum or Plasma 4.3 meq/L 3.5-5.1 [facility] ([facility]) Carbon dioxide, total [Moles/volume] in Serum or Plasma 25 meq/L 21 -32 [facility] ([facility]) Chloride [Moles/volume] in Serum or Plasma 101 meq/L 98-107 [facility] ([facility]) Total Bilirubin 0.5 mg/dL 0.2-1.0 [facility] ([facility]) Calcium [Mass/volume] in Serum or Plasma 8.4 mg/dL 8.5-10.1 [facility] ([facility]) NOTE: RESULT VERIFIED. Alkaline phosphatase isoenzyme [Units/volume] in Serum or Pl asma 63 mg/dL 46-116 [facility] ([facility]) Alanine aminotransferase [Enzymatic activity/volume] in Seru m or Plasma 21 U/L 12-78 [facility] ([facility]) Aspartate aminotransferase [Enzymatic activity/volume] in Serum or Plasma 12 U/L 15-37 [facility] ([facility] ) Proteinase 3 Ab [Units/volume] in Serum 7.1 g/dL 6.4-8.2 [facility] ([facility]) A/G Ratio 1.15 CALC 1.00-1.90 [facility]) Albumin [Mass/volume] in Serum or Plasma 3.8 g/dL 3.4-5.0 [facility] ([facility]) Glomerular filtration rate/1.73 sq M pre dicted among blacks [Volume Rate/Area] in Serum or Plasma by Creatinine-based formula (MDRD) Laboratory test [facility] <content>CHRONIC KIDNEY DISEASE STAGING PER NKF</content>
<content></content>
<content>STAGE I & II GFR >= 60 NORMAL TO MILDLY DECREASED</content>
<content>STAGE III GFR 30-59 MODERATELY DECREASED</content>
<content>STAGE IV GFR 15-29 SEVERELY DECREASED</content>
<content>STAGE V GFR <15 VERY LITTLE GFR LEFT</content>
<content>ESRD GFR <15 ON SHEET TAKER</content>
<content></content> Glomerular filtration rate/1.73 sq M pre dicted among non-blacks [Volume Rate/Area] in Serum or Plasma by Creatinine-based formula (MDRD) Laboratory test result [facility] ([facility] ) ID Date Data Source [id number] 06/23/2020 12:00:00 AM EST [facility] Name Value Range Interpretation Code Description Data Ryann rce(s) Supporting Document(s) SARS-CoV-2 (COVID-19) RNA [Presence] in Respiratory specimen by TAMRA with probe detection [facility] This lab was ordered by [facility] and reported by [employer]. ID Date Data Source [id number] 05/31/2020 02:25:00 PM EST MEDENT ([facility]) Name Value Range Interpretation Code Description Data Ryann rce(s) Supporting Document(s) Rheumatoid Factor Quant Laboratory test result [facility] ([facility]) ID Date Data Source [id number] 05/31/2020 02:25:00 PM EST [facility] ([facility]) Name Value Range Interpretation Code Description Data Ryann rce(s) Supporting Document(s) Antinuclear Antibodies Direct Laboratory test result [facility] Performed at: RN - [facility] [place] [id number] Environmental Communications Specialist: Marlen Gutierrez MD, Phone: [phone] ID Date Data Source [id number] 05/31/2020 02:24:00 PM EST [facility] ([facility]) Name Value Range Interpretation Code Description Data Ryann rce(s) Supporting Document(s) Creatine kinase [Enzymatic activity/volume] in Serum or Plasma 121 U/L 26-192 [facility] ([facility]) ID Date Data Source [id number] 05/31/2020 02:24:00 PM EST [facility] ([facility]) Name Value Range Interpretation Code Description Data Ryann rce(s) Supporting Document(s) Erythrocytes [#/volume] in Blood by Automated count 5.27 x10*6/UL 4.2 0-6.30 [facility] ([facility]) Leukocytes [#/volume] in Blood by Automated count 6.9 x10*3/UL 4.1-10 .9 [facility] ([facility]) MCV 82.1 fL 80.0-97.0 [facility]) Hematocrit [Volume Fraction] of Blood by Automated count 43.3 % 3 7.0-51.0 [facility] Hemoglobin [Mass/volume] in Blood 14.4 g/dL 12.0-18.0 [facility] MCH 27.3 pg 26.0-32.0 [facility] ([facility]) Erythrocyte distribution width [Ratio] by Automated count 12.9 % 11.6-13.7 [facility] MCHC 33.2 g/dL 31.0-38.0 [facility] ([facility]) Platelets [#/volume] in Blood by Automated count 262 x10*3/UL 140-440 [facility] Lymph % 22.0 % 10.0-58.5 [facility] ([facility]) MPV 9.0 FL 7.8-11.0 [facility] ([facility]) Lymph # 1.5 x10*3/UL 0.6-4.1 [facility] Mid % 5.9 % 1.7-9.3 [facility] ([facility]) Neut % 72.1 % 37.0-92.0 [facility] ([facility]) Mid # 0.5 x10*3/UL 0.1-0.6 [facility] Neut # 4.9 x10*3/UL 2.0-7.8 [facility] ID Date Data Source [id number] 01/28/2020 12:55:00 PM EDT [facility] Name Value Range Interpretation Code Description Data Ryann rce(s) Supporting Document(s) Coronavirus 2019 Nasopharygeal Laboratory test result [facility] This test was developed and its performa nce characteristics determined by [employer]. This test has not been FDA cleared [...] result in this assay. Performed at: - [facility] [id number] Environmental Communications Specialist: Marlen Gutierrez MD, Phone: [phone] Not Detected ID Date Data Source [id number] 01/28/2020 12:55:00 PM EDT [facility] Name Value Range Interpretation Code Description Data Ryann rce(s) Supporting Document(s) SARS coronavirus 2 RNA [facility] This lab was ordered by [facility] and reported by [facility]. ID Date Data Source PAP REQUEST FOR SERVICE 12/28/2019 04:45:25 AM EDT eCW1 ([facility]) Name Value Range Interpretation Code Description Data Ryann rce(s) Supporting Document(s) PAP REQUEST FOR SERVICE eCW1 ( [facility]) ID Date Data Source [id number] 08/16/2019 07:34:[address] [facility] Name Value Range Interpretation Code Description Data Ryann rce(s) Supporting Document(s) Progress Note [facility] [id number] [facility] [file] AgICAgICAgICAgICAgICAgICAgICAgICAgICAgICAgICAgICAgICAgICAgICAgICAgICAgICAgICAgIC AgICAgICAgICAgICAgICAgICAgICAgICAgICAgICAgICAgICAgICANCiAgICAgICAgICAgICAgICAgIC AgICAgICAgICAgICAgICAgICAgICAgICAgICAgICAg ICAgICAgICAgICAgICAgICAgICAgICAgICAgICAgICAgICAgICAgICAgICAgICAgICANCiAgICAgICAg ICAgICAgICAgICAgICAgICAgICAgICAgICAgICAgICAgICAgICAgICAgICAgICAgICAgICAgICAgICAg ICAgICAgICAgICAgICAgICAgICAgICAgICAgICAgIC ANCiAgICAgICAgICAgICAgICAgICAgICAgICAgICAgICAgICAgICAgICAgICAgICAgICAgICAgICAgIC AgICAgICAgICAgICAgICAgICAgICAgICAgICAgICAgICAgICAgICAgICANCiAgICAgICAgICAgICAgIC AgICAgICAgICAgICAgICAgICAgICAgICAgICAgICAg ICAgICAgICAgICAgICAgICAgICAgICAgICAgICAgICAgICAgICAgICAgICAgICAgICAgICANCiAgICAg ICAgICAgICAgICAgICAgICAgICAgICAgICAgICAgICAgICAgICAgICAgICAgICAgICAgICAgICAgICAg ICAgICAgICAgICAgICAgICAgICAgICAgICAgICAgIC AgICANCiAgICAgICAgICAgICAgICAgICAgICAgICAgICAgICAgICAgICAgICAgICAgICAgICAgICAgIC AgICAgICAgICAgICAgICAgICAgICAgICAgICAgICAgICAgICAgICAgICAgICANCiAgICAgICAgICAgIC AgICAgICAgICAgICAgICAgICAgICAgICAgICAgICAg ICAgICAgICAgICAgICAgICAgICAgICAgICAgICAgICAgICAgICAgICAgICAgICAgICAgICAgICANCiAg ICAgICAgICAgICAgICAgICAgICAgICAgICAgICAgICAgICAgICAgICAgICAgICAgICAgICAgICAgICAg ICAgICAgICAgICAgICAgICAgICAgICAgICAgICAgIC AgICAgICANCiAgICAgICAgICAgICAgICAgICAgICAgICAgICAgICAgICAgICAgICAgICAgICAgICAgIC AgICAgICAgICAgICAgICAgICAgICAgICAgICAgICAgICAgICAgICAgICAgICAgICANCjw/dJAxT7ayaN BbxbY8I8ffJe0VZz6ORY8ch9MeJZMuIYggnrDrTtxR XwVmBDGpCvmWTyx4KNpdUH4HoHAvT9ZdN4AsETvtVQ8HOIUlLQFghULvQVWiHBOnCqN7ASRwGJbcJY5J mEYbPRbpYRRxQIUhIX1GECKjT371hjNrIL6ISx4NNfLqVA9lhw2UJkLtJBBkBexZXfv8QRnyEQ5ZySUu eLFyAtKdPIVBDiWaF4icl9NtIlUkSUMIUUbzTV2Eq0 VudCAxDQo+Zs5LNG7ya1VwFZywQfNaVM7zts1EATaAYyLlI0LskEnzDNGne0pvZAGxXW2hlFGjMCE8HV 2dhZMmWXefEVuxR41ra92aMRY1WBWcOu1lFDQaKRY9KdD3UQKJTJ1PBKSeGYJwjCPkHAFaOCAIIP2AQR psYCX9VCKpfhInnXBcQVbmKW6AIANhajAoZxUqGAIV DQo+Gb6XZV1bs6UaBBnaEKSuDH9lwl0GHLfLEzVwQ1U6pZGiZ2U1RCcvWa8IRRLeIXIvUmErSINFHWvm VZ7YIQ1eagR1YV2ZnBDzIIWpRTPryGFcFZe1M00zkGUaOPvxKT6NBBV+Anais+Mn6MVTNmMVIxWIWvViCl ZAWSPcRcV3HoD5WDh7FgQ7HxYX67vZjqhjOsBPjrAW 4YIU2nGYCgHWPVWN4KdEDoaN0tgdOcFwWqKAMBNkMkR38axILoRRBqVTFtTIMmVh3CRLPqK4XjbnUnaA vcfqNvWYJuJZXBPH3XGXoscsNhvSVxsHyuIB14lOisFQ0JJq0QBsAeFT3qzd9CcYVbPv1XWQPcOJ1GFS OaDAWxOVZtTJB6NMTuIuChIXhdNWMfWLVuMSV0NSIl PKGbVO4USlWaIZFlJBr4CHTlWXLaWTOnwg0HKUHuDTRsZOPfJVDfOTTtURUiHMrmLQWjWSLsLHQ0BYHr PXUqPK9TQxBaNVSqECTmIBLcEKVlYDLvmv2RWUHxYBSmHcUfYyJuKLWqXBLqUDncDZRfEEZ3YjP2VMNp XGWhJA8VOmHrXZAhYEG7HbTuGZGvKVRwvs8STSXzXL EaRJq2LQBbDYNdMCPtFOikYRGkFNK3Lsu4BRYyGZGhSF1MIiIbLCXlFLH2NBNqLJPeVSKadd6ZPHYsSY NiGpG3SAOeBVAlHHKiJLezSBLwXAH8SZC8BSKcVAMlMU3NMaUnUAAsVHa9GGJoLWAdRKKhvt0ACJKjRJ LzELH3EkUrGRGvRCBaVMkpDETgTCY2AtEvBFZqJBTz UW7ULhEzLIBkJVn9FZatPNFsNZBvdc8JICXfMHZvVUU5MhNgTAOfLQChAShmCUEdQVO6IJlvWLFlSHPg OB2PDeXgXTRlKEi3MVrnHAAnWXHzyn2VLUZzDPMrJIE2YVErRTKrPMRaTOyaIXEkIXXsOrGbCBIzYJPz UL8PXjEpRCXlReA7WLKaJUQsKEQugo5ODTYwEDUuCL ojBYPvYGLtLWDbQBf6vaUglAByKRa4GI0YP3TxoeMbBhGAHi7Qa000DOR6RMLdEm0DI2jtZs2lXPRuSQ IGIv7HNHr5NCPdDRuuHHGhZSutORRtTED1TSwjDiS9HNQkBBf6GNN+FBntD7C1MQG5OfL8WKA3GlJdFH YuZQNqHUY9LLIfCYR5ES3cFRYHBh7+VWdahYTgmRcwLLGZJcZzIGk4BJdpGEBAUv9B ID Date Data Source [id number] 08/15/2019 09:56:[address] [facility] MR EXTREMITY UPPER JOINT WITHOUT CONTRAS T [id number] RESULTInterpreted by:Jhoana Harrell MDINDICATION: Shoulder painTECHNIQUE: MRI of the right shoulder was performed without contrast.COMPARISON: Right shoulder x-ray dated 05/12/2019.FINDINGS: Exam sensitivity somewhat decreased due to large body habitus and field of view utilized.Rotator cuff: There is mild tendinosis and low-grade interstitial tearing of the anterior infraspinatus proximal to the footprint. There is a low-grade focal articular surface tear of the anterior distal supraspinatus. No full-thickness tear. Subscapularis and teres minor intact. No rotator cuff muscle atrophy or fatty infiltration is identified.Labrum: No labral tear is identified. Biceps: The contour, course, caliber, and signal of the long head of biceps tendon is within normal limits. Bone: No Hill Sachs or osseous Bankart lesion is identified. Marrow signal is within normal limits. Acromioclavicular joint: There is mild acromioclavicular hypertrophy with moderate reactive edema within the distal clavicle and acromion with surrounding soft tissue edema. No fracture line.. There is no os acromiale. Miscellaneous: Trace subacromial/subdeltoid bursal fluid accu mulation. Quadrilateral space, suprascapular notch and spinoglenoid notch are normal in appearance. IMPRESSION:1. Low-grade partial tear of the anterior distal supraspinatus. No full-thickness tear. Muscle bulk preserved.2. Mild infraspinatus tendinosis and interstitial tearing of the anterior fibers proximally. No full-thickness tear. Muscle bulk preserved.3. Mild acromioclavicular joint degenerative changes with moderate reactive marrow and soft tissue edema. Trace subacromial/subdeltoid bursal fluid accumulation.This document has been electronically signed by Jhoana Harrell MD on 08/15/2019 9:53 AM Name Value Range Interpretation Code Description Data Ryann rce(s) Supporting Document(s) Procedure Social History Code Duration Value Status Description Data Source(s ) Smoking 12/21/2019 12:00:00 AM EDT Never Smoker completed Never S meker eCW1 ([facility]) Alcohol intake 08/16/2019 12:00:00 AM EST Current non-d aj of alcohol (finding) completed Current non-drinker of alcohol (finding) [facility] Smoking 08/16/2019 12:00:00 AM EST Never smoker completed Never s [facility] Vital Signs ID Date Data Source UNK Name Value Range Interpretation Code Description Data Source(s) Body surface area Derived from formula 2.00 m2 2.00 m2 [facility] ([facility]) Body weight 104.328 kg 104.328 kg [facility] ([facility]) [place] body weight 105 [lb_av] 105 [lb_av] MEDEN T ([facility]) Body mass index (BMI) [Ratio] 43.5 kg/m2 43.5 k g/m2 [facility] ([facility]) Body weight 230.00 [lb_av] 230.00 [[facility]_av] [facility] Body height 61 [in_i] 61 [in_i] [facility] ([facility]) 5'1" Body temperature 97.0 [degF] 97.0 [degF] [facility] ([facility]) Respiratory rate 16 /min 16 /min [facility] ( [facility]) Heart rate 84 /min 84 /min [facility] ([facility]) Diastolic blood pressure 76 mm[Hg] 76 mm[Hg] [facility] ([facility]) Systolic blood pressure 128 mm[Hg] 128 mm[Hg] [facility] Body mass index (BMI) [Ratio] 44.9 kg/m2 44.9 k g/m2 [facility] ([facility]) Body weight 230.00 [lb_av] 230.00 [lb_av] MEDEN T ([facility]) Body height 60.0 [in_i] 60.0 [in_i] MEDENT ([facility]) 5'0" Heart rate 68 /min 68 /min [facility] Diastolic blood pressure 80 mm[Hg] 80 mm[Hg] MEDENT ([facility]) Systolic blood pressure 124 mm[Hg] 124 mm[Hg] M EDENT ([facility]) Body mass index (BMI) [Ratio] 44.5 kg/m2 44.5 k g/m2 MEDENT ([facility]) Oxygen saturation in Arterial blood by Pulse oximetry 96 % 96 % MEDENT ([facility]) Air Body weight 228.00 [lb_av] 228.00 [lb_av] MEDEN T ([facility]) Body height 60.0 [in_i] 60.0 [in_i] MEDENT ([facility]) 5'0" Heart rate 76 /min 76 /min MEDENT ([facility]) Diastolic blood pressure 82 mm[Hg] 82 mm[Hg] MEDENT ([facility]) Systolic blood pressure 120 mm[Hg] 120 mm[Hg] M EDENT ([facility]) Diastolic blood pressure 76 mm[Hg] 76 mm[Hg] W1 ([facility]) Systolic blood pressure 126 mm[Hg] 126 mm[Hg] e CW1 ([facility]) Body mass index (BMI) [Ratio] 41.53 kg/m2 41.53 kg/m2 eCW1 ([facility]) Body height 61 [in_i] 61 [in_i] eCW1 ([facility]) Body weight 219.8 [lb_av] 219.8 [lb_av] eCW1 ([facility]) Body mass index (BMI) [Ratio] 41.0 kg/m2 41.0 k g/m2 MEDENT ([facility]) Body weight 210.00 [lb_av] 210.00 [lb_av] MEDEN T ([facility]) Body height 60.0 [in_i] 60.0 [in_i] MEDENT ([facility]) 5'0" Heart rate 72 /min 72 /min MEDENT ([facility]) Diastolic blood pressure 68 mm[Hg] 68 mm[Hg] MEDENT ([facility]) Systolic blood pressure 124 mm[Hg] 124 mm[Hg] M EDENT ([facility]) Body mass index (BMI) [Ratio] 38.4 kg/m2 38.4 k g/m2 MEDENT ([facility]) Body height 61 [in_i] 61 [in_i] MEDENT ([facility]) 5'1" Body weight 203.00 [lb_av] 203.00 [lb_av] MEDEN T ([facility]) Body temperature 98.7 [degF] 98.7 [degF] [facility]) Oxygen saturation in Arterial blood by Pulse oximetry 98 % 98 % [facility] ([facility]) Respiratory rate 16 /min 16 /min [facility] ( [facility]) Heart rate 82 /min 82 /min [facility]) Diastolic blood pressure 79 mm[Hg] 79 mm[Hg] [facility]) Systolic blood pressure 112 mm[Hg] 112 mm[Hg] [facility]) Patient Treatment Plan of Care Planned Activity Planned Date Details Description Data Source (s) Norethindrone Acet-Ethinyl Est 1.5-30 MG-MCG 12/21/2019 12:00:00 AM EDT eCW1 ([facility]) Nystatin 100 UNT/MG Topical Powder 09/30/2019 12:00:00 AM EDT eCW1 ([facility]) Nystatin 100 UNT/MG Topical Powder 09/30/2019 12:00:00 AM EDT eCW1 ([facility]) Ranitidine 150 MG Oral Tablet 09/21/2018 12:00:00 AM [facility]
--- OUTSIDE RECORDS SUMMARY | 2020-09-02 19:44 | CCD | Continuity of Care Document ---
Author Author Jessi SALAS M.D. Organization Unknown Address [address] [facility] [address] [place] [address] Phone [phone] Care Team Providers Care Senior Research Fellow Name Role Phone Polo Salas MD [facility] [phone] Problems Active Problems Provider Date Isolated thyrotropin [...] CPT Code Status Date Vaccine Lot # 14553 Given 07/27/2018 Influenza Virus Vaccine, Quadrivalent (Cciiv4), Derived From 2 Given 11/22/2013 Influenza Virus Vaccine 10087 Given 05/23/2011 Adacel- Tetanus Diphtheria P ertussis (Age64 & Under) 83472 Given 05/23/2011 Influenza Virus Vaccine 35875 Given 04/12/2010 Influenza Virus Vaccine 50936 Given 03/13/2010 Influenza Virus Vaccine 80526 Given 08/14/2003 Adacel- Tetanus Diphtheria P ertussis (Age64 & Under) Q2037 Given Unknown Fluvirin Virus Vaccine 20155 Refused 06/06/2014 Influenza Virus Vaccine Vital Signs [...] Result H/L Range Note Antinuclear Antibodies 05/31/2020 [facility] [address] [place] [address] [phone] Antinuclear Antibodies Direct Negative Normal Ne gative 1 Laboratory test finding 05/31/2020 [facility] [address] [place] [address] [phone] Rheumatoid Factor Quant < 10.0 IU/mL Normal <15.0 Complete Blood Count 05/31/2020 [facility] Mathematical Technician: [place] [address] [phone] WBC 6.9 x10*3/UL 4.1 - 10.9 RBC [...] 2.0 - 7.8 Laboratory test finding 05/31/2020 [facility] Mathematical Technician: Dr Harris [address] [place], [place] [id number] [phone] Creatine Kinase(CK) 121 U/L 26 - 192 Coronavirus 2019 Nasopharygeal 01/28/[address] [id number] [phone] Coronavirus 2019 Nasopharygeal This test was de <SEE N OTE> 2 1 Performed at: [address] [id number] Mathematical Technician: Marlen Gutierrez MD, Phone: [phone] This test was developed and its performance characteristics determined by [employer]. This test has not been FDA cleared [...] result in this assay. Performed at: - [facility] [id number] Mathematical Technician: Marlen Gutierrez MD, Phone: [phone] Not Detected Procedures Description No Information Available Medical Devices Description No Information Available Encounters Type Date Location Provider Dx Diagnosis Office Visit 05/31/2020 2:00p [facility] EFRAIN Bailey JR R59.9 Enlarged lymph nodes, unspec ified E78.5 Hyperlipidemia, unspecified Assessments Date Code Description Provider 05/31/2020 R59.9 Enlarged lymph nodes, unspecifie d EFRAIN Monroe JR 05/31/2020 E78.5 Hyperlipidemia, unspecified EFRAIN Ha JR Plan of Treatment Future Appointment(s):* 08/07/2020 8:00 am - Polo Salas M.D. at [facility] 08/03/2019 - Polo Salas M.D.* E03.9 Hypothyroidism, unspecified * E78.5 Hyperlipidemia, unspecified * K21.9 Gastro-esophageal reflux disease without esophagitis * Z91.030 Bee allergy status * K59.00 Constipation, unspecified * Functional Status Description No Information Available Mental Status Description No Information Available Referrals Description No Information Available
--- OUTSIDE RECORDS SUMMARY | 2020-09-02 19:44 | CCD | Continuity of Care Document ---
Author Author Lab Schedule, Jessi Rawls Organization Unknown Address [address] [address] Phone Unavailable Care Team Providers Care Electronics Installer Name Role Phone Polo Maurer MD [facility] [phone] Problems Active Problems Provider Date Isolated thyrotropin [...] CPT Code Status Date Vaccine Lot # 61678 Given 07/27/2018 Influenza Virus Vaccine, Quadrivalent (Cciiv4), Derived From 2 Given 11/22/2013 Influenza Virus Vaccine 97449 Given 05/23/2011 Adacel- Tetanus Diphtheria P ertussis (Age64 & Under) 34376 Given 05/23/2011 Influenza Virus Vaccine 78593 Given 04/12/2010 Influenza Virus Vaccine 53707 Given 03/13/2010 Influenza Virus Vaccine 39789 Given 08/14/2003 Adacel- Tetanus Diphtheria P ertussis (Age64 & Under) Q2037 Given Unknown Fluvirin Virus Vaccine 97695 Refused 06/06/2014 Influenza Virus Vaccine Vital Signs [...] Result H/L Range Note Antinuclear Antibodies 05/31/[address] [address] [phone] Antinuclear Antibodies Direct Negative Normal Ne gative 1 Laboratory test finding 05/31/[address] [address] [phone] Rheumatoid Factor Quant < 10.0 IU/mL Normal <15.0 Complete Blood Count 05/31/2020 [facility] Care Assistant: [place] [address] [phone] WBC 6.9 x10*3/UL 4.1 - 10.9 RBC [...] 2.0 - 7.8 Laboratory test finding 05/31/2020 [facility] Care Assistant: Dr Harris Lauren [place], [place] [id number] [phone] Creatine Kinase(CK) 121 U/L 26 - 192 1 Performed at: RN - [facility] [address] [id number] Care Assistant: Marlen Gutierrez MD, Phone: [phone] Procedures Description No Information Available Medical Devices Description No Information Available Encounters Type Date Location Provider Dx Diagnosis Office Visit 05/31/2020 2:00p [facility] EFRAIN Bailey JR R59.9 Enlarged lymph nodes, unspec ified E78.5 Hyperlipidemia, unspecified Assessments Date Code Description Provider 05/31/2020 R59.9 Enlarged lymph nodes, unspecifie d EFRAIN Monroe JR 05/31/2020 E78.5 Hyperlipidemia, unspecified EFRAIN Ha JR Plan of Treatment Future Appointment(s):* 08/07/2020 8:00 am - Polo Maurer M.D. at [facility] 08/03/2019 - Polo Maurer M.D.* E03.9 Hypothyroidism, unspecified * E78.5 Hyperlipidemia, unspecified * K21.9 Gastro-esophageal reflux disease without esophagitis * Z91.030 Bee allergy status * K59.00 Constipation, unspecified * Functional Status Description No Information Available Mental Status Description No Information Available Referrals Refer to Reason for Referral Status Appt Date Mili Crabtree DO NP CONSULT FOR BREAST REDUCTION Sent [facility] Plastic Surgery [address] [place], [place] [id number] [phone]
[2020-09-02 19:48] LABS: BASO # 0.1 10^3/uL (0.0-0.2); BASO % 0.8 % (0.0-1.0); EOS # 0.3 10^3/uL (0.0-0.5); EOS % 4.5 % (0.0-3.0); LYMPH # 2.1 10^3/uL (1.5-5.0); LYMPH % 33.3 % (24.0-44.0); MONO # 0.4 10^3/uL (0.0-0.8); NEUTROPHILS # 3.4 10^3/uL (1.5-8.5); NEUTROPHILS % 54.2 % (36.0-66.0); PLATELET COUNT, AUTOMATED 261 10^3/uL (150-450)
[2020-09-02] MEDS ORDERED: ASPIRIN 81 MG CHEW TABLET PO ONE (20:00)
[2020-09-02 20:11] LABS: BLOOD UREA NITROGEN 9 MG/DL (7-18); CARBON DIOXIDE LEVEL 27 MEQ/L (21-32); CHLORIDE LEVEL 105 MEQ/L (98-107); CK-MB VALUE MASS < 1.0 NG/ML (<3.6); CPK CREATINE PHOSPHOKINASE 167 U/L (26-192); CREATININE FOR GFR 0.82 MG/DL (0.55-1.30); GLOMERULAR FILTRATION RATE > 60.0 (>58); GLUCOSE, FASTING 85 MG/DL (70-100); POTASSIUM SERUM 4.2 MEQ/L (3.5-5.1); SODIUM LEVEL 139 MEQ/L (136-145); TROPONIN I < 0.02 NG/ML (< 0.10)
[2020-09-02] MEDS ORDERED: ISOVUE-370 76% 100ML VIAL As Ordered ONE (20:31)
--- NOTE | 2020-09-02 21:39 | REPVR ---
PROCEDURE INFORMATION: Exam: CT Angiography Chest With Contrast Exam date and time: 09/02/2020 9:08 PM Age: 45 years old Clinical indication: Chest pain; Additional info: Chest pain SOB TECHNIQUE: Imaging protocol: Computed tomographic angiography of the chest with contrast. 3D rendering (Not supervised by radiologist): MIP and/or 3D reconstructed images were created by the technologist. Radiation optimization: All CT scans at this facility use at least one of these dose optimization techniques: automated exposure control; mA and/or kV adjustment per patient size (includes targeted exams where dose is matched to clinical indication); or iterative reconstruction. Contrast material: ISOVUE 370; Contrast volume: 75 ml; Contrast route: INTRAVENOUS (IV); COMPARISON: CT ANGIO CHEST 10/07/2016 6:39 PM FINDINGS: Pulmonary arteries: The main pulmonary artery measures 20 mm. No pulmonary embolism is identified. Aorta: The ascending thoracic aorta measures 26 mm. No gross or obvious aortic dissection is identified distal to the mid arch. Artifact and image degradation precludes detailed evaluation of the ascending thoracic aorta. Lungs: Unremarkable. No consolidation. No masses. Pleural spaces: Unremarkable. No pneumothorax. No pleural effusion. Heart: Unremarkable. No cardiomegaly. No pericardial effusion. Mediastinal space: Induration of anterior mediastinal fat which may reflect residual thymic tissue. Lymph nodes: Unremarkable. No enlarged lymph nodes. Gallbladder and bile ducts: Absent gallbladder. Bones/joints: Unremarkable. No acute fracture. Soft tissues: Unremarkable. IMPRESSION: 1. Status post cholecystectomy. 2. Otherwise negative CTA chest. No pulmonary embolism is identified. Electronically signed by: Cory Coe On 09/02/2020 21:40:10 PM
--- NOTE | 2020-09-02 22:22 | ECGEPIP ---
[facility] - ED Test Date: 2020-09-02 Pat Name: LEVI ELENA Department: Room: - Gender: Female Buccaro: ANSELMO : 1975 Requested By: MARA Paez Order Number: [id number] Reading MD: Shyam Vogel Measurements Intervals [place] Rate: 71 P: 49 ID: [id number] QRS: -16 QRSD: 72 T: 16 QT: 390 QTc: 423 Interpretive Statements Normal sinus rhythm Possible Left atrial enlargement NONSPECIFIC T WAVE ABNORMALITY(S) SIMILAR TO 10/07/16 Electronically Signed on 09-02-2020 22:22:13 EST by Shyam Vogel
--- OUTSIDE RECORDS SUMMARY | 2020-09-02 23:18 | CCD ---
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 If you continue you may have access to information: Regarding HIV / AIDS; Provided by facilities licensed or operated by the [facility] Office of Mental Health; or Provided by the [facility] Office for People With Developmental Disabilities. If such information is present, then the following [facility] mandated warning applies: This information has been [...] law may result in a fine or fdc sentence or both. A general authorization for the release of medical or other information is NOT sufficient authorization for further disc losure. Allergies and Adverse Reactions Type Description Substance Reaction Status Data Source(s ) Drug Class NO KNOWN ALLERGIES NO KNOWN ALLERGIES [facility] Family History Family Member Name Family Member Gender Family Member Status Date o f Status Description Data Source(s) Unknown Male Problem MEDENT ([facility]) Unknown Female Problem MEDENT ([facility]) Unknown Female Problem [facility] ([facility]) Encounters Encounter Providers Location Date Indications Data Source(s ) Outpatient Attender: Polo Liang 08/07 07:00:00 AM EST MEDENT ([facility] ) Outpatient Attender: MARIA DEL CARMEN Liang 1 07/31/2019 01:00:00 PM EST MEDENT ([facility] ) ( GYNANN) [facility] 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 [address] [place] [address] 12/21/2019 12:00:00 AM EDT eCW1 ([facility]) Outpatient Attender: KAVIN SERRANO 10/11/2019 12:00:00 A M [facility] [address] [place] [address] 09/29/2019 12:00:00 AM EDT eCW1 ([facility]) Outpatient Attender: KAVIN SERRANOReferrer: KAVIN GIANG RO [id number] 08/15/2019 12:00:00 AM [facility] Outpatient Referrer: KAVIN SERRANO 08/15/2019 12:0 0:00 AM EST Impingement syndrome of right shoulder [facility] Impingement syndrome of right shoulder Outpatient Referrer: KAVIN SERRANO 08/09/2019 12:00:00 A M [facility] Outpatient Attender: KAVIN SERRANO 08/09/2019 12:00:00 A M [facility] Outpatient Attender: ATILIO Stephen Primary 07/14/2019 07:45:00 AM EST MEDENT ([facility]) Medications Medication Brand Name Start Date Product Form Dose Route Admi nistrative Instructions Pharmacy Instructions Status Indications Reaction Description Data Source(s) Norethindrone Acet-Ethinyl Est 1.5-30 MG-MCG Norethind isreal Acet-Ethinyl Est 1.5- 30 MG-MCG 12/21/2019 12:00:00 AM EDT 1.0 {tablet} ac tive Norethindrone Acet-Ethinyl Est 1.5-30 MG-MCG eCW1 ([facility]) Nystatin 100 UNT/MG Topical Powder Nystatin 392224 UNI T/GM Nystatin 144628 UNIT/GM 09/30/2019 12:00:00 AM EDT active 1 application eCW1 ([facility]) Nystatin 100 UNT/MG Topical Powder Nystatin 811429 UNI T/GM Nystatin 193017 UNIT/GM 09/30/2019 12:00:00 AM EDT 1.0 {application} active Nystatin 786259 UNIT/GM eCW1 ([facility]) Famotidine 20 MG Oral Tablet Famotidine 08/03/2019 12:00:00 AM EST ORAL active MEDENT ([facility]) cefdinir 300 MG Oral Capsule Cefdinir 07/14/2019 12:00:00 AM EST ORAL active MEDENT ([facility]) Ofloxacin 3 MG/ML Ophthalmic Solution Ofloxacin (Ophthalmic) 07/14/2019 12:00:00 AM EST OPHTHALMIC active MEDENT ([facility]) Ranitidine 150 MG Oral Tablet ranitidine (ZANTAC) 150 MG tablet ranitidine (ZANTAC) 150 MG tablet 09/21/2018 12:00:00 AM EDT aborted TK 1 T PO BID [facility] Insurance Providers Payer name Policy type / Coverage type Policy ID Covered alliance party ID Covered alliance party's relationship to germain Policy Germain Plan Information BCBS FEDERAL EMPLOYEE PROGRAM [id number] SP [id number] [facility] [id number] SP [id number] SELF PAY ONLY [id number] SP [id number] [facility] O [id number] [place] FED[place] B [id number] P [id number] [employer] FEDERAL EMPLOYEE PROGRAM [id number] SP [id number] [place] PPO 302/[id number] SP [id number] EXCELLUS H [id number] Self [id number] [facility] U [id number] Se lf [id number] [facility] Claims DPT Commercial [id number] Self [id number] Federal BC/BS Commercial [id number] Self [id number] [facility] Claims DPT Commercial [id number] Self [id number] BCBS FEDERAL EMPLOYEE PROGRAM [id number] SP [id number] [facility] [id number] SP [id number] [facility] Commercial [id number] Self [id number] BCBS Federal Plan Commercial [id number] Self [id number] [facility] Claims DPT Commercial [id number] Self [id number] EXCELLUS H [id number] Self [id number] [facility] Maintenance Organization ([facility]) [id number] Self [id number] [facility] Maintenance Organization ([facility]) [id number] Self [id number] [facility] Commercial [id number] Self [id number] BCBS Federal Plan Commercial [id number] Self [id number] EXCELLUS BCBS FEDERAL [id number] SP [id number] [facility] Maintenance Organization ([facility]) [id number] Self [id number] [facility] Maintenance Organization ([facility]) [id number] Self [id number] [facility] Commercial [id number] Self [id number] BCBS Federal Plan Commercial [id number] Self [id number] [facility] Commercial [id number] Self [id number] BCBS Federal Plan Commercial [id number] Self [id number] [facility] Commercial [id number] Self [id number] BCBS Federal Plan Commercial [id number] Self [id number] [facility] Commercial Self BCBS Federal Plan Commercial Self [facility] Health Maintenance Organization (HMO) Self [facility] Maintenance Organization (HMO) Self [facility] Claims DPT Commercial Self Federal BC/BS Commercial 804/[id number] Self [id number]/[address] [facility] O [id number] S [id number] [facility] [id number] SP [id number] [facility] [id number] SP [id number] [facility] [id number] SP [id number] [facility] Plan Medigap Part B Family Depend ent BC/BS (Federal) Commercial Self BC BS [place] FEDERAL [id number] SP [id number] Problems, Conditions, and Diagnoses Code Display Name Description Problem Type Effective Dates Data Source(s) N93.9 [id number] Abnormal uterine bleeding (AUB) Problem 12/21/2019 12:00:00 AM EDT eCW1 ([facility]) M75.41 Impingement syndrome of right shoulder I mpingement syndrome of right shoulder Diagnosis 08/15/2019 07:01:29 AM EST [facility] Surgeries/Procedures Procedure Description Date Indications Data Source(s) SURGERY CASE REQUEST OUTSIDE FACILITY ONLY SURGERY CA SE REQUEST OUTSIDE FACILITY ONLY Routine 08/15/2019 8:49 AM EST Impingement syndrome of right shoulder 08/15/2019 01:49:26 P M EST Impingement syndrome of right shoulder [facility] Impingement syndrome of right shoulder Results ID Date Data Source [id number] 08/08/2020 12:00:00 AM EST [facility] Name Value Range Interpretation Code Description Data Ryann rce(s) Supporting Document(s) SARS-CoV2 Rapid Antigen Negative [facility] This lab was ordered by [facility] and reported by [facility]. ID Date Data Source [id number] 08/06/2020 07:58:00 AM EST MEDENT ([facility]) Name Value Range Interpretation Code Description Data Ryann rce(s) Supporting Document(s) Hemoglobin A1c/Hemoglobin.total in Blood 5.8 % MEDENT ([facility]) Lab Result Notes: Pre-Diabetes 5.7 - 6.4 % Diabetes = or > 6.5% Glucose mean value [Mass/volume] in Blood Estimated fr om glycated hemoglobin 120 mg/dL 60-110 MEDENT ([facility] ) ID Date Data Source [id number] 08/06/2020 07:58:00 AM EST MEDENT ([facility]) Name Value Range Interpretation Code Description Data Ryann rce(s) Supporting Document(s) Thyrotropin [Units/volume] in Serum or Plasma by Detec tion limit <= 0.05 mIU/L 2.46 uIU/mL 0.36-3.74 MEDENT ([facility] ) ID Date Data Source [id number] 08/06/2020 07:58:00 AM EST MEDENT ([facility]) Name Value Range Interpretation Code Description Data Ryann rce(s) Supporting Document(s) Cholesterol in HDL [Mass/volume] in Serum or Plasma 44 mg/dL 35-60 MEDENT ([facility]) Triglyceride [Mass/volume] in Serum or Plasma 173 mg/dL 30-150 MEDENT ([facility]) Cholesterol [Mass/volume] in Serum or Plasma 229 mg/dL 131-200 MEDENT ([facility]) Cholesterol in LDL [Mass/volume] in Serum or Plasma by calcu lation 150 CALC 50-159 MEDENT ([facility]) ID Date Data Source [id number] 08/06/2020 07:58:00 AM EST MEDENT ([facility]) Name Value Range Interpretation Code Description Data Ryann rce(s) Supporting Document(s) Glucose [Mass/volume] in Serum or Plasma 129 mg/dL 74-99 MEDENT ([facility]) 100-125 mg/dL PRE-DIABETES/FASTING >126 mg/dL DIABETES/FASTING Sodium [Moles/volume] in Serum or Plasma 137 meq/L 136-145 MEDENT ([facility]) Urea nitrogen [Mass/volume] in Serum or Plasma 14 mg/dL 7-18 MEDENT ([facility]) Creatinine 0.9 mg/dL 0.6-1.3 [facility]) Potassium [Moles/volume] in Serum or Plasma 4.3 meq/L 3.5-5.1 MEDENT ([facility]) Carbon dioxide, total [Moles/volume] in Serum or Plasma 25 meq/L 21 -32 MEDENT ([facility]) Chloride [Moles/volume] in Serum or Plasma 101 meq/L 98-107 MEDENT ([facility]) Total Bilirubin 0.5 mg/dL 0.2-1.0 MEDENT ([facility]) Calcium [Mass/volume] in Serum or Plasma 8.4 mg/dL 8.5-10.1 MEDENT ([facility]) NOTE: RESULT VERIFIED. Alkaline phosphatase isoenzyme [Units/volume] in Serum or Pl asma 63 mg/dL 46-116 MEDENT ([facility]) Alanine aminotransferase [Enzymatic activity/volume] in Seru m or Plasma 21 U/L 12-78 MEDENT ([facility]) Aspartate aminotransferase [Enzymatic activity/volume] in Serum or Plasma 12 U/L 15-37 MEDENT ([facility] ) Proteinase 3 Ab [Units/volume] in Serum 7.1 g/dL 6.4-8.2 MEDENT ([facility]) A/G Ratio 1.15 CALC 1.00-1.90 [facility] ([facility]) Albumin [Mass/volume] in Serum or Plasma 3.8 g/dL 3.4-5.0 MEDENT ([facility]) Glomerular filtration rate/1.73 sq M pre dicted among blacks [Volume Rate/Area] in Serum or Plasma by Creatinine-based formula (MDRD) Laboratory test result [facility] <content>CHRONIC KIDNEY DISEASE STAGING PER NKF</content>
<content></content>
<content>STAGE I & II GFR >= 60 NORMAL TO MILDLY DECREASED</content>
<content>STAGE III GFR 30-59 MODERATELY DECREASED</content>
<content>STAGE IV GFR 15-29 SEVERELY DECREASED</content>
<content>STAGE V GFR <15 VERY LITTLE GFR LEFT</content>
<content>ESRD GFR <15 ON HEMODIALYSIS TECHNICIAN</content>
<content></content> Glomerular filtration rate/1.73 sq M pre dicted among non-blacks [Volume Rate/Area] in Serum or Plasma by Creatinine-based formula (MDRD) Laboratory test result MEDENT ([facility] ) ID Date Data Source [id number] 06/23/2020 12:00:00 AM EST [facility] Name Value Range Interpretation Code Description Data Ryann rce(s) Supporting Document(s) SARS-CoV-2 (COVID-19) RNA [Presence] in Respiratory specimen by TAMRA with probe detection [facility] This lab was ordered by [facility] and reported by [employer] [facility]. ID Date Data Source [id number] 05/31/2020 02:25:00 PM EST MEDENT ([facility]) Name Value Range Interpretation Code Description Data Ryann rce(s) Supporting Document(s) Rheumatoid Factor Quant Laboratory test result MEDENT ([facility]) ID Date Data Source [id number] 05/31/2020 02:25:00 PM EST MEDENT ([facility]) Name Value Range Interpretation Code Description Data Yrann rce(s) Supporting Document(s) Antinuclear Antibodies Direct Laboratory test result [facility] ([facility]) Performed at: RN - [facility] [place] [id number] Advertising Columnist: Marlen Gutierrez MD, Phone: [phone] ID Date Data Source [id number] 05/31/2020 02:24:00 PM EST MEDENT ([facility]) Name Value Range Interpretation Code Description Data Ryann rce(s) Supporting Document(s) Creatine kinase [Enzymatic activity/volume] in Serum or Plasma 121 U/L 26-192 [facility] ID Date Data Source [id number] 05/31/2020 02:24:00 PM EST MEDENT ([facility]) Name Value Range Interpretation Code Description Data Ryann rce(s) Supporting Document(s) Erythrocytes [#/volume] in Blood by Automated count 5.27 x10*6/UL 4.2 0-6.30 MEDENT ([facility]) Leukocytes [#/volume] in Blood by Automated count 6.9 x10*3/UL 4.1-10 .9 MEDENT ([facility]) MCV 82.1 fL 80.0-97.0 [facility]) Hematocrit [Volume Fraction] of Blood by Automated count 43.3 % 3 7.0-51.0 [facility] Hemoglobin [Mass/volume] in Blood 14.4 g/dL 12.0-18.0 [facility] ([facility]) MCH 27.3 pg 26.0-32.0 MEDENT ([facility]) Erythrocyte distribution width [Ratio] by Automated count 12.9 % 11.6-13.7 [facility] MCHC 33.2 g/dL 31.0-38.0 MEDENT ([facility]) Platelets [#/volume] in Blood by Automated count 262 x10*3/UL 140-440 [facility] Lymph % 22.0 % 10.0-58.5 MEDENT ([facility]) MPV 9.0 FL 7.8-11.0 MEDENT ([facility]) Lymph # 1.5 x10*3/UL 0.6-4.1 [facility] ([facility] Mid % 5.9 % 1.7-9.3 MEDENT ([facility]) Neut % 72.1 % 37.0-92.0 MEDENT ([facility]) Mid # 0.5 x10*3/UL 0.1-0.6 [facility] ([facility] Neut # 4.9 x10*3/UL 2.0-7.8 [facility] ([facility]) ID Date Data Source [id number] 01/28/2020 12:55:00 PM EDT MEDENT [facility] Name Value Range Interpretation Code Description Data Ryann rce(s) Supporting Document(s) Coronavirus 2019 Nasopharygeal Laboratory test result [facility] This test was developed and its performa nce characteristics determined by [employer]. This test has not been FDA cleared [...] result in this assay. Performed at: - [facility] [id number] Advertising Columnist: Marlen Gutierrez MD, Phone: [phone] Not Detected ID Date Data Source [id number] 01/28/2020 12:55:00 PM EDT [facility] Name Value Range Interpretation Code Description Data Ryann rce(s) Supporting Document(s) SARS coronavirus 2 RNA [facility] This lab was ordered by [facility] and reported by [facility]. ID Date Data Source PAP REQUEST FOR SERVICE 12/28/2019 04:45:25 AM EDT eCW1 ([facility]) Name Value Range Interpretation Code Description Data Ryann rce(s) Supporting Document(s) PAP REQUEST FOR SERVICE eCW1 ( [facility]) ID Date Data Source [id number] 08/16/2019 07:34:52 AM [facility] Name Value Range Interpretation Code Description Data Ryann rce(s) Supporting Document(s) Progress Note [facility] DSUYXh2rFjTIRjMq34/NSZahMQXmc2JoMYnhMWb1FWhlSRAoL2AuHHU9hC6ePIL2DRaLGdRuPaGxSdJ5 [facility] [file] AgICAgICAgICAgICAgICAgICAgICAgICAgICAgICAgICAgICAgICAgICAgICAgICAgICAgICAgICAgIC AgICAgICAgICAgICAgICAgICAgICAgICAgICAgICAgICAgICAgICANCiAgICAgICAgICAgICAgICAgIC AgICAgICAgICAgICAgICAgICAgICAgICAgICAgICAg ICAgICAgICAgICAgICAgICAgICAgICAgICAgICAgICAgICAgICAgICAgICAgICAgICANCiAgICAgICAg ICAgICAgICAgICAgICAgICAgICAgICAgICAgICAgICAgICAgICAgICAgICAgICAgICAgICAgICAgICAg ICAgICAgICAgICAgICAgICAgICAgICAgICAgICAgIC ANCiAgICAgICAgICAgICAgICAgICAgICAgICAgICAgICAgICAgICAgICAgICAgICAgICAgICAgICAgIC AgICAgICAgICAgICAgICAgICAgICAgICAgICAgICAgICAgICAgICAgICANCiAgICAgICAgICAgICAgIC AgICAgICAgICAgICAgICAgICAgICAgICAgICAgICAg ICAgICAgICAgICAgICAgICAgICAgICAgICAgICAgICAgICAgICAgICAgICAgICAgICAgICANCiAgICAg ICAgICAgICAgICAgICAgICAgICAgICAgICAgICAgICAgICAgICAgICAgICAgICAgICAgICAgICAgICAg ICAgICAgICAgICAgICAgICAgICAgICAgICAgICAgIC AgICANCiAgICAgICAgICAgICAgICAgICAgICAgICAgICAgICAgICAgICAgICAgICAgICAgICAgICAgIC AgICAgICAgICAgICAgICAgICAgICAgICAgICAgICAgICAgICAgICAgICAgICANCiAgICAgICAgICAgIC AgICAgICAgICAgICAgICAgICAgICAgICAgICAgICAg ICAgICAgICAgICAgICAgICAgICAgICAgICAgICAgICAgICAgICAgICAgICAgICAgICAgICAgICANCiAg ICAgICAgICAgICAgICAgICAgICAgICAgICAgICAgICAgICAgICAgICAgICAgICAgICAgICAgICAgICAg ICAgICAgICAgICAgICAgICAgICAgICAgICAgICAgIC AgICAgICANCiAgICAgICAgICAgICAgICAgICAgICAgICAgICAgICAgICAgICAgICAgICAgICAgICAgIC AgICAgICAgICAgICAgICAgICAgICAgICAgICAgICAgICAgICAgICAgICAgICAgICANCjw/oDNpR2whgE UoelF4W2gkTq1IYf1OVD4yu1UkGIEoDWdkmoPxGtkW YvDaKZOyUspGYhx5JCcqVI6LcHHxY7LnH7CoYTsfII3UUSDjXPHybSDoZOSkIOIhAbV1WLIqEYccZF8E dHTgEYyyCHKhMCXdUC2SFGRsJ783cgGgKX2LBd4EGvIxSB5vit5VZwHqGYJtFfvEZaa3JIlfFI9UnPKx qNUbNfYpBSSBEfRhV3ayi7LoYmGlSOVPRSzaIS4Vf3 VudCAxDQo+Bg3GXG4zv2UxKQmfWbPmNC2ujo3TQOeAHsGyA6CkuHbnXAHye0zyQIHmHH4obRNfJVF7PM 5giKZoYDpvFBiyY52ia07xDVE5KGUzHw3iAYEfLQV6AsU9GUVWBS6LCSYgRCAueXRjLTDgIIZQPT8BJF pcSAC0JYOcgkMssFPgYJcpMI4GDNEmsuYoXhUjGIHU DQo+Se0ACE0sw0CzRFzeZMWdZR1zmw8QYEmOXgWrZ3T1wFMuY4D3CLlsUx9PBWGrMKVyMyLlUUPZWRos JH7LGO3chzR1QC3OcGCqOXOkQVWuzNFkZUv0X47zcOSjFZoqSM4LCIU+Anais+Eq1GHQEsFYIoYNSsLtNf GWWIVzYkR4AaY0MWv8ZjK2FeWU16aQkvnrWdVOxkSE 4GDF5uIBBoEWEZIZ3JoXVspO2macWoHpYlXOJXQoKvI57ntIKhVMEoAFTiNUJxLi0YYONtP7EqjjQjpA ipemQxXONoLQWCZJ3CXXrjoiUjoAXfzYviYC97yElpUK2GSt2LVyZcFI9bme3TdXJyTl4VWHDtWV7STC IoOEGnUUQnDRP1AMMbUfTiCOtcUGNnOVHnRRS8YOIv ODZqTP1VDhIwVCHoWKx6BHHeSWBuUUYuzx5CRKZwWBObXGMeLPWvDZEeVURmDAndFFLxLWHnKRA6YMOq HJMrFX6OHuWdCQBhJNSfIDNsDJCyEHCwqe2WEWUhTYQjKnKlOkVvEXYvXHYvZBjeABPuNTZ0DiY6EGHq UEHgOZ9WSnBtIUTqLUK5DmNoGEOpLZHslb7YLXLmZO HlPSx3WZHsHLCvNUMyFTkwXSRnUHC9Hky1FNSbKUYeLY0PVcCyFZObEGW5ZWIqBLQdGPWxvw2CPEBrZZ NgCdM5UKQyVIEbVZPpYKfrBHWnQNV4MYT9HEWiTBJsRV5UItSzINVrGRn2MKUbLSKjVTNspq3CBAYbED HbBQH2XpBePGUaTNKzSSnaEEJfZMN3RbZvHIShDDWo RK2VQkVfNORwIAn8VQchQBPwKEEils5EMCAeZBRtHDL5UvMzQOHtDCWtLXxqVKLtMSG4JUofXIKjZWMi DG1EBhAxRYMpOTp2AHyjKCPrXYGaid2NQUYbWWNyVXI4SRFwBBBtTHWpEIyzQFUfMDJsZlRhJAAiBNTn LO7CDsCzXLQbIiV4YEEbRXQoIWUfkg0NSPWhZCMiJT mtJFNaSCEeIQUwHAw9vrTqyXVuSWj2VC6CN3JkdlZkYwMVPm3Ev201LNY5LCLnPn0XA7qhZu5iSMKqAZ NTVr2MKTl0UWBtYQoxINCgYBvkGPUzGTT3JFebXrY5AWVpRZz8ZLR+ILvqG1P3LDW1NuY5MWB3KpWiPM YvDAKeVEV0EWLaSVK7BH8aVNWZPs2+CJnjxVEgcFjdGCCAEqFnWPn4ZZncPNEPLp0W ID Date Data Source [id number] 08/15/2019 09:56:00 AM EST [facility] MR EXTREMITY UPPER JOINT WITHOUT CONTRAS T [id number] RESULTInterpreted by:Jhoana Harrell MDINDICATION: Shoulder painTECHNIQUE: MRI [...] AM EDT Never Smoker completed Never S miker eCW1 ([facility]) Alcohol intake 08/16/2019 12:00:00 AM EST Current non-d aj of alcohol (finding) completed Current non-drinker of alcohol (finding) [facility] Smoking 08/16/2019 12:00:00 AM EST Never smoker completed Never s [facility] Vital Signs ID Date Data Source UNK Name Value Range Interpretation Code Description Data Source(s) Body surface area Derived from formula 2.00 m2 2.00 m2 [facility] ([facility]) Body weight 104.328 kg 104.328 kg [facility] ([facility]) [place] body weight 105 [lb_av] 105 [lb_av] MEDEN T ([facility]) Body mass index (BMI) [Ratio] 43.5 kg/m2 43.5 k g/m2 [facility] ([facility]) Body weight 230.00 [lb_av] 230.00 [lb_av] [facility] Body height 61 [in_i] 61 [in_i] [facility] ([facility]) 5'1" Body temperature 97.0 [degF] 97.0 [degF] [facility] ([facility]) Respiratory rate 16 /min 16 /min [facility] ( [facility]) Heart rate 84 /min 84 /min [facility] ([facility]) Diastolic blood pressure 76 mm[Hg] 76 mm[Hg] [facility] ([facility]) Systolic blood pressure 128 mm[Hg] 128 mm[Hg] [facility] Body mass index (BMI) [Ratio] 44.9 kg/m2 44.9 k g/m2 [facility] ([facility]) Body weight 230.00 [lb_av] 230.00 [lb_av] MEDEN T ([facility]) Body height 60.0 [in_i] 60.0 [in_i] MEDENT ([facility]) 5'0" Heart rate 68 /min 68 /min [facility] ([facility] Diastolic blood pressure 80 mm[Hg] 80 mm[Hg] MED[facility] ([facility]) Systolic blood pressure 124 mm[Hg] 124 mm[Hg] M EDENT ([facility]) Body mass index (BMI) [Ratio] 44.5 kg/m2 44.5 k g/m2 [facility] ([facility]) Oxygen saturation in Arterial blood by Pulse oximetry 96 % 96 % [facility] ([facility]) Air Body weight 228.00 [lb_av] 228.00 [lb_av] MEDEN T ([facility]) Body height 60.0 [in_i] 60.0 [in_i] MED[facility] ([facility]) 5'0" Heart rate 76 /min 76 /min [facility] ([facility]) Diastolic blood pressure 82 mm[Hg] 82 mm[Hg] [facility] ([facility]) Systolic blood pressure 120 mm[Hg] 120 mm[Hg] M EDENT ([facility]) Diastolic blood pressure 76 mm[Hg] 76 mm[Hg] W1 ([facility]) Systolic blood pressure 126 mm[Hg] 126 mm[Hg] e CW1 ([facility]) Body mass index (BMI) [Ratio] 41.53 kg/m2 41.53 kg/m2 eCW1 ([facility]) Body height 61 [in_i] 61 [in_i] eCW1 ([facility]) Body weight 219.8 [lb_av] 219.8 [lb_av] eCW1 ([facility]) Body mass index (BMI) [Ratio] 41.0 kg/m2 41.0 k g/m2 MED[facility] ([facility]) Body weight 210.00 [lb_av] 210.00 [lb_av] MEDEN T ([facility]) Body height 60.0 [in_i] 60.0 [in_i] MED[facility] ([facility]) 5'0" Heart rate 72 /min 72 /min [facility] ([facility]) Diastolic blood pressure 68 mm[Hg] 68 mm[Hg] MED[facility] ([facility]) Systolic blood pressure 124 mm[Hg] 124 mm[Hg] M EDENT ([facility]) Body mass index (BMI) [Ratio] 38.4 kg/m2 38.4 k g/m2 MED[facility] ([facility]) Body height 61 [in_i] 61 [in_i] MEDENT ([facility], [facility]) 5'1" Body weight 203.00 [lb_av] 203.00 [lb_av] MEDEN T ([facility]) Body temperature 98.7 [degF] 98.7 [degF] [facility]) Oxygen saturation in Arterial blood by Pulse oximetry 98 % 98 % [facility] [facility] Ill, [facility]) Respiratory rate 16 /min 16 /min [facility], [facility]) Heart rate 82 /min 82 /min [facility] ([facility], [facility]) Diastolic blood pressure 79 mm[Hg] 79 mm[Hg] [facility] ([facility], [facility]) Systolic blood pressure 112 mm[Hg] 112 mm[Hg] [facility], [facility]) Patient Treatment Plan of Care Planned Activity Planned Date Details Description Data Source (s) Norethindrone Acet-Ethinyl Est 1.5-30 MG-MCG 12/21/2019 12:00:00 AM EDT eCW1 ([facility]) Nystatin 100 UNT/MG Topical Powder 09/30/2019 12:00:00 AM EDT eCW1 ([facility]) Nystatin 100 UNT/MG Topical Powder 09/30/2019 12:00:00 AM EDT eCW1 ([facility]) Ranitidine 150 MG Oral Tablet 09/21/2018 12:00:00 AM [facility]
[2020-09-03 01:29] LABS: CK-MB VALUE MASS 1.1 NG/ML (<3.6); CPK CREATINE PHOSPHOKINASE 156 U/L (26-192); MB/CK RELATIVE INDEX 0.71 (< OR =4); TROPONIN I < 0.02 NG/ML (< 0.10)
[2020-09-03 01:36] VITALS: BP 132/60
--- NOTE | 2020-09-03 07:25 | ECGEPIP ---
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
== END 2020-09-03 02:08 | disposition home or self-care (01) ==
LOC: M ED 18:09
DX: R07.9 Chest pain, unspecified (principal); R06.02 Shortness of breath; E03.9 Hypothyroidism, unspecified; Z91.030 Bee allergy status; Z79.890 Hormone replacement therapy
CPT/HCPCS: 36415; 71045; 71275; 80048; 82550; 82553; 84484; 85025; 93005; 93041; 94760; 99285; Q9967

== ENCOUNTER → 2020-11-23 | Outpatient (CLI) | payer BC, OTHER ==
--- NOTE | 2020-11-23 13:44 | REP ---
INDICATION: COUGH. COMPARISON: None. TECHNIQUE: PA and lateral views FINDINGS: The superior mediastinal structures are midline. The cardiac silhouette is unremarkable in size, shape, and position. The diaphragmatic surfaces of the lungs are regular, and the costophrenic angles are clear. The pulmonary anderson are clear. The imaged osseous structures are intact. IMPRESSION: There is no acute cardiopulmonary disease. <Electronically signed by Karsten Mckeon > 11/23/20 1404
== END ==
LOC: M RAD 12:48
PROVIDERS: ATTEND Physician Assistant
DX: R05 Cough (principal)

== ENCOUNTER → 2021-03-27 | Outpatient (CLI) | payer BC, OTHER ==
--- NOTE | 2021-03-27 15:50 | REPMRS ---
Patient History The patient states she had a clinical breast exam in March 2021. Family history of breast cancer in paternal grandmother. Taking hormonal contraceptives for 5 years. Patient states no breast complaints today. Patient has signed MRS History Sheet. Digital Woman Screen Mammo: March 27, 2021 - Exam #: [id number] Bilateral CC and MLO view(s) were taken. Technologist: Tere Cruz, Technologist Prior study comparison: January 16, 2020, bilateral digital woman screen mammo performed at [facility]. FINDINGS: There are scattered fibroglandular densities. Screening. Digital screening (2D) mammography was performed bilaterally in the CC and MLO projections. Additionally, breast tomosynthesis (3D mammography) was performed bilaterally in the CC and MLO projections. Todays exam was compared to the prior exam/exams. By history, the patient has no complaints of a palpable breast abnormality or other significant breast complaints. The breasts are unchanged in size and shape. There are no job-soft tissue densities or spiculated masses. There is no internal architectural distortion. There are no suspicious job-calcific clusters. Skin thickening or nipple retraction is not present. IMPRESSION: BI-RADS Category 2- Benign Findings. There is no evidence of malignant alteration of the breasts. Followup examination recommended in one year. The Volpara volumetric breast density category is B, there are scattered areas of fibroglandular densities. This mammogram was read with the assistance of Cambiatta,an FDA approved computer aided detection system for mammography. The lifetime Tyrer-Cuzick score is 17.4 % Negative x-ray reports should not delay surgical consultation if a dominant or clinically suspicious mass is present. Not all breast cancers can be identified by mammography. Therefore, we recommend that you continue to perform regular breast self-examination and physical examination and then promptly contact your physician of any concerns or changes. Adenosis and dense breasts may obscure an underlying neoplasm. Assessment: BI-RADS/ACR category 2 mammogram. Benign Findings. Recommendation Routine screening mammogram of both breasts in 1 year. Electronically Signed By: Karsten Mckeon DO 03/27/21 [id number]
== END ==
LOC: M WHC 13:56
PROVIDERS: ATTEND Obstetrics & Gynecology
DX: Z12.31 Encounter for screening mammogram for malignant neoplasm of breast (principal); Z80.3 Family history of malignant neoplasm of breast

== ENCOUNTER → 2021-03-27 | Outpatient (REF) | payer BC, OTHER | LOC: M SFHCWAGY 19:03 | PROVIDERS: ATTEND Obstetrics & Gynecology | DX: Z12.4 Encounter for screening for malignant neoplasm of cervix (principal) ==

== ENCOUNTER 2022-01-21 08:51 | Emergency (ER) | payer BC, OTHER ==
[~2022-01-21] VITALS: Ht 154.9 cm; Wt 90.0 kg
[~2022-01-21 08:51] MED LIST changes: -LEVO50TA5; -NORE1TAB58
[2022-01-21 08:52] VITALS: BP 128/76
[2022-01-21] MEDS ORDERED: LEVO50TA5 (09:01)
[2022-01-21] MEDS ORDERED: NORE1TAB58 (09:01)
== END 2022-01-21 11:31 | disposition left against medical advice (07) ==
LOC: M ED 08:51
DX: Z53.29 Procedure and treatment not carried out because of patient's decision for other reasons (principal)

== ENCOUNTER → 2022-01-21 | Outpatient (REF) | payer OTHER ==
[~2022-01-21] MED LIST changes: +LEVO50TA5; +NORE1TAB58
[2022-01-21 20:15] LABS: BACTERIA, URINE NONE SEEN; HYALINE CAST, URINE NONE SEEN /lpf (0-1); RBC, URINE 0-1 /hpf (0-3); SQUAMOUS EPITHELIAL CELL URINE MOD AMOUNT /hpf (SMALL AMT)
[2022-01-21 20:16] LABS: YEAST, URINE LARGE AMOUNT
[2022-01-21 21:31] LABS: AMYLASE 93 U/L (25-115); LIPASE 125 U/L (73-393)
== END ==
LOC: M LAB REF 16:40
PROVIDERS: ATTEND Physician Assistant Medical
DX: R10.32 Left lower quadrant pain (principal)

== ENCOUNTER → 2022-01-22 | Outpatient (CLI) | payer OTHER ==
[~2022-01-22] MED LIST changes: +GASTROGRAFIN SOLUTION 30ML (Q9963) As Ordered ONE; +ISOVUE-370 76% 100ML VIAL As Ordered ONE; +LEVO50TA5; +NORE1TAB58
== END ==
LOC: M RAD 09:22
PROVIDERS: ATTEND Physician Assistant Medical
DX: R10.32 Left lower quadrant pain (principal)
CPT/HCPCS: 74178; Q9963; Q9967

== ENCOUNTER → 2022-03-31 | Outpatient (REF) | payer OTHER ==
[~2022-03-31] MED LIST changes: -GASTROGRAFIN SOLUTION 30ML (Q9963) As Ordered ONE; -ISOVUE-370 76% 100ML VIAL As Ordered ONE
== END ==
LOC: M SFHCWAGY 13:11
PROVIDERS: ATTEND Obstetrics & Gynecology
DX: Z12.4 Encounter for screening for malignant neoplasm of cervix (principal); R87.610 Atypical squamous cells of undetermined significance on cytologic smear of cervix (ASC-US)
CPT/HCPCS: 77063; 77067; 87624; G0123; G0463

== ENCOUNTER → 2022-03-31 | Outpatient (CLI) | payer OTHER | LOC: M WHC 09:34 | PROVIDERS: ATTEND Obstetrics & Gynecology | DX: Z12.31 Encounter for screening mammogram for malignant neoplasm of breast (principal) ==

== ENCOUNTER → 2022-10-09 | Outpatient (REF) | payer OTHER | LOC: M LAB REF 11:33 | PROVIDERS: ATTEND Physician Assistant | DX: J02.9 Acute pharyngitis, unspecified (principal) ==

== ENCOUNTER 2022-11-11 12:04 | Observation (INO) | payer OTHER ==
[~2022-11-11] VITALS: Ht 154.9 cm; Wt 69.4 kg
[~2022-11-11 12:04] MED LIST changes: +ACETAMINOPHEN 1000MG 100ML IV BAG As Ordered ONE; +HEPARIN SOD (PORCINE) 5000UNITS/ML 1ML VIAL/SYRINGE SQ ONE; +KETOROLAC 60MG 2ML VIAL As Ordered ONE; +LIDOCAINE 2% 100MG/5ML SDV (FOR ANES.) As Ordered ONE; +LORA-243 PO; +MIDAZOLAM INJ 2MG/2ML VIAL As Ordered ONE; -NORE1TAB58; +NORE1TAB58 PO; +ONDANSETRON 4MG 2ML VIAL As Ordered ONE; +ROCURONIUM BROMIDE 50MG/5ML VIAL As Ordered ONE; +SUGAMMADEX SODIUM 500 MG/5 ML VIAL (BRIDION) As Ordered ONE; +ceFAZolin SOD 2 GM in IV 1 EA IV ONE; +fentaNYL 100 MCG/2 ML INJECTION As Ordered ONE; +propofoL 200 MG/20 ML VIAL As Ordered ONE
[2022-11-11] MEDS ORDERED: ROCURONIUM BROMIDE 50MG/5ML VIAL As Ordered ONE ×2 (13:06→15:11)
[2022-11-11] MEDS ORDERED: LR 1,000 ML IV SCH ×2 (13:10→18:20)
[2022-11-11] MEDS ORDERED: LIDOCAINE 1% SDV 5ML VIAL SC PRN (13:10)
[2022-11-11] MEDS ORDERED: SCOPOLAMINE 1MG TRANSDERMAL PATCH TOP ONE (13:30)
[2022-11-11] MEDS ORDERED: BUPIVACAINE HCL 0.25% 10ML VIAL As Ordered ONE (14:04)
[2022-11-11] MEDS ORDERED: BUPIVACAINE LIPOSOME/PF 1.3% 20ML VIAL (13.3MG/ML)(EXPAREL) As Ordered ONE (14:04)
[2022-11-11] MEDS ORDERED: GENTAMICIN SULF 80MG/2ML VIAL As Ordered ONE (14:05)
[2022-11-11] MEDS ORDERED: HYDROmorphone HCL 2MG/ML 1ML VIAL As Ordered ONE (15:12)
[2022-11-11] MEDS ORDERED: KETOROLAC 60MG 2ML VIAL As Ordered ONE (15:14)
[2022-11-11] MEDS ORDERED: METOCLOPRAMIDE INJ 10MG/2ML VIAL As Ordered ONE (15:31)
[2022-11-11] MEDS ORDERED: ePHEDrine SULFATE 25 MG/5 ML(5MG/ML) SYRINGE As Ordered ONE (17:39)
[2022-11-11] MEDS ORDERED: ONDANSETRON 4MG 2ML VIAL IV PRN ×2 (18:20→18:30)
[2022-11-11] MEDS ORDERED: fentaNYL 100 MCG/2 ML INJECTION IV PRN (18:20)
[2022-11-11] MEDS ORDERED: traMADol 50 MG TAB PO PRN (18:30)
[2022-11-11] MEDS ORDERED: ACETAMINOPHEN TAB 650MG DOSE (2X325MG) PO PRN (18:30)
[2022-11-11] MEDS: oxyCODONE 5MG TAB PO PRN ×2 (18:35→19:27)
[2022-11-11] MEDS ORDERED: HYDROMORPHONE HCL 0.5 MG/ 0.5 ML SYRINGE IV PRN (19:00)
[2022-11-11] MEDS: LR 1,000 ML IV SCH (19:59)
[2022-11-11 20:22] VITALS: BP 122/74
[2022-11-11] MEDS ORDERED: SYNT50TA PO (21:03)
[2022-11-11] MEDS ORDERED: NYST1POW9 TOP (21:03)
[2022-11-11] MEDS ORDERED: ALEV220T22 PO (21:03)
[2022-11-11] MEDS ORDERED: [UNRECOGNIZED DRUG - CODE] PO (21:03)
[2022-11-11] MEDS ORDERED: NORE1TAB94 PO (21:03)
[2022-11-11] MEDS ORDERED: EPIP0.3I2 IM (21:03)
[2022-11-11] MEDS ORDERED: HOME MED LIST COMPLETE! XX SCH (21:05)
[2022-11-11 21:15] VITALS: BP 105/50
[2022-11-11 22:00] VITALS: BP 104/51
[2022-11-11] MEDS: ceFAZolin SOD 1 GM in D5W MINI-BAG PLUS 50 ML IV SCH (22:52)
[2022-11-11] MEDS: PERCOCET 5MG/325MG TAB PO PRN (22:52)
[2022-11-11 23:00] VITALS: BP 96/46
[2022-11-12 02:00] VITALS: BP 94/48
[2022-11-12 05:18] VITALS: BP 119/59
[2022-11-12] MEDS: ceFAZolin SOD 1 GM in D5W MINI-BAG PLUS 50 ML IV SCH (06:00)
[2022-11-12] MEDS: PERCOCET 5MG/325MG TAB PO PRN ×2 (07:37→11:23)
[2022-11-12] MEDS: LR 1,000 ML IV SCH (07:50)
[2022-11-12] MEDS ORDERED: PERCOCET PO (10:00)
[2022-11-12 10:15] VITALS: BP 111/55
== END 2022-11-12 11:25 | disposition home or self-care (01) ==
LOC: M SDC 12:04 → M ED INP 12:05 → M MS5PR 19:45
PROVIDERS: ADMIT Plastic Surgery Surgery of the Hand; ATTEND Plastic Surgery Surgery of the Hand
DX: N62 Hypertrophy of breast (principal); E03.9 Hypothyroidism, unspecified; Z79.899 Other long term (current) drug therapy; Z79.890 Hormone replacement therapy; Z79.3 Long term (current) use of hormonal contraceptives; Z91.030 Bee allergy status
CPT/HCPCS: 19318; 88305; 96374; 96376; C9290; J0131; J0690; J1100; J1170; J1580; J2250; J2405; J2765; J3010; S0020

== ENCOUNTER → 2023-04-21 | Outpatient (CLI) | payer OTHER ==
[~2023-04-21] MED LIST changes: -ACETAMINOPHEN 1000MG 100ML IV BAG As Ordered ONE; +ALEV220T22 PO; +CYTO B PO; +EPIP0.3I2 IM; -HEPARIN SOD (PORCINE) 5000UNITS/ML 1ML VIAL/SYRINGE SQ ONE; -KETOROLAC 60MG 2ML VIAL As Ordered ONE; -LIDOCAINE 2% 100MG/5ML SDV (FOR ANES.) As Ordered ONE; -MIDAZOLAM INJ 2MG/2ML VIAL As Ordered ONE; +NORE1TAB94 PO; +NYST1POW9 TOP; -ONDANSETRON 4MG 2ML VIAL As Ordered ONE; +PERCOCET PO; -ROCURONIUM BROMIDE 50MG/5ML VIAL As Ordered ONE; -SUGAMMADEX SODIUM 500 MG/5 ML VIAL (BRIDION) As Ordered ONE; +SYNT50TA PO; -ceFAZolin SOD 2 GM in IV 1 EA IV ONE; -fentaNYL 100 MCG/2 ML INJECTION As Ordered ONE; -propofoL 200 MG/20 ML VIAL As Ordered ONE
== END ==
LOC: M WHC 13:04
PROVIDERS: ATTEND Obstetrics & Gynecology
DX: N63.20 Unspecified lump in the left breast, unspecified quadrant (principal)

== ENCOUNTER → 2023-04-24 | Outpatient (REF) | payer OTHER | LOC: M SFHCWAGY 12:37 | PROVIDERS: ATTEND Obstetrics & Gynecology | DX: Z12.4 Encounter for screening for malignant neoplasm of cervix (principal) ==

== ENCOUNTER 2023-07-23 09:35 | Observation (INO) | payer SELFPAY ==
[~2023-07-23] VITALS: Ht 154.9 cm; Wt 78.8 kg
[~2023-07-23 09:35] MED LIST changes: +ACETAMINOPHEN 1000MG 100ML IV BAG As Ordered ONE; +CYAN500T14 PO; +HEPARIN SOD (PORCINE) 5000UNITS/ML 1ML VIAL/SYRINGE SQ ONE; +HYDROmorphone HCL 2MG/ML 1ML VIAL As Ordered ONE; +MIDAZOLAM INJ 2MG/2ML VIAL As Ordered ONE; +ONDANSETRON 4MG 2ML VIAL As Ordered ONE; +[UNRECOGNIZED DRUG - CODE] PO; +ceFAZolin SOD 2 GM in IV 1 EA IV ONE; +fentaNYL 100 MCG/2 ML INJECTION As Ordered ONE
[2023-07-23] MEDS ORDERED: ROCURONIUM BROMIDE 50MG/5ML VIAL As Ordered ONE ×2 (09:36→14:08)
[2023-07-23] MEDS ORDERED: SUGAMMADEX SODIUM 500 MG/5 ML VIAL (BRIDION) As Ordered ONE ×2 (09:36→14:08)
[2023-07-23] MEDS ORDERED: propofoL 200 MG/20 ML VIAL As Ordered ONE (09:36)
[2023-07-23] MEDS ORDERED: LIDOCAINE 2% 100MG/5ML SDV (FOR ANES.) As Ordered ONE (09:36)
[2023-07-23] MEDS ORDERED: LR 1,000 ML IV SCH ×3 (10:25→18:20)
[2023-07-23] MEDS ORDERED: HYDROmorphone HCL 2MG/ML 1ML VIAL As Ordered ONE (12:04)
[2023-07-23] MEDS ORDERED: diphenhydrAMINE 50MG/ML VIAL As Ordered ONE (12:05)
[2023-07-23] MEDS ORDERED: LABETALOL 100MG/20ML VIAL As Ordered ONE (12:05)
[2023-07-23] MEDS ORDERED: GENTAMICIN SULF 80MG/2ML VIAL As Ordered ONE (12:12)
[2023-07-23] MEDS ORDERED: EPINEPHrine 1MG/ML INJ 30ML MD-VIAL As Ordered ONE (12:18)
[2023-07-23] MEDS ORDERED: LIDOCAINE W/EPINEPHRINE 1% 20ML VIAL As Ordered ONE (12:18)
[2023-07-23] MEDS ORDERED: LIDOCAINE 1% MDV 20ML VIAL As Ordered ONE (12:22)
[2023-07-23] MEDS ORDERED: ceFAZolin 1GM VIAL As Ordered ONE (16:55)
[2023-07-23] MEDS ORDERED: ONDANSETRON 4MG 2ML VIAL IV PRN ×2 (18:10→18:20)
[2023-07-23] MEDS ORDERED: fentaNYL 100 MCG/2 ML INJECTION IV PRN (18:10)
[2023-07-23] MEDS ORDERED: oxyCODONE 5MG TAB PO PRN (18:10)
[2023-07-23] MEDS: HYDROMORPHONE HCL 0.5 MG/ 0.5 ML SYRINGE IV PRN ×2 (18:20→18:37)
[2023-07-23] MEDS ORDERED: ACETAMINOPHEN TAB 650MG DOSE (2X325MG) PO PRN (18:20)
[2023-07-23 19:54] VITALS: BP 134/85; TEMP 97.9; O2SAT 99
[2023-07-23 20:36] VITALS: BP 135/72; TEMP 97.2; O2SAT 93
[2023-07-23] MEDS: ceFAZolin SOD 1 GM in D5W MINI-BAG PLUS 50 ML IV SCH (20:39)
[2023-07-23 21:41] VITALS: BP 116/58; TEMP 97.6; O2SAT 95
[2023-07-23] MEDS: PERCOCET 5MG/325MG TAB PO PRN (22:30)
[2023-07-23 22:40] VITALS: BP 115/59; TEMP 97.2; O2SAT 96
[2023-07-23 23:42] VITALS: BP 128/79; TEMP 97.8; O2SAT 93
[2023-07-24 02:43] VITALS: BP 112/62; TEMP 97.1; O2SAT 93
[2023-07-24] MEDS: PERCOCET 5MG/325MG TAB PO PRN ×3 (03:07→12:17)
[2023-07-24 05:32] VITALS: BP 106/53; TEMP 97.9; O2SAT 93
[2023-07-24] MEDS: ceFAZolin SOD 1 GM in D5W MINI-BAG PLUS 50 ML IV SCH (05:46)
[2023-07-24] MEDS ORDERED: LEVOTHYROXINE 50MCG TABLET (0.05MG) PO SCH (06:00)
[2023-07-24 07:43] LABS: HEMATOCRIT 34.6 % (36.0-47.0); HEMOGLOBIN 11.7 g/dl (12.0-15.5); MEAN CORPUSCULAR HEMOGLOBIN 28.7 pg (27.0-33.0); MEAN CORPUSCULAR HGB CONC 33.8 g/dl (32.0-36.5); PLATELET COUNT, AUTOMATED 228 10^3/uL (150-450); RED BLOOD COUNT 4.07 10^6/uL (4.00-5.40); WHITE BLOOD COUNT 11.6 10^3/uL (4.0-10.0)
[2023-07-24] MEDS ORDERED: LORATADINE 10 MG TAB PO SCH (09:00)
[2023-07-24] MEDS ORDERED: PERCOCET PO (10:02)
[2023-07-24 10:09] VITALS: BP 106/55; TEMP 97.9; O2SAT 95
== END 2023-07-24 12:35 | disposition home or self-care (01) ==
LOC: M SDC 09:35 → M RR INP 18:18 → M MS5PR 19:54
PROVIDERS: ADMIT Plastic Surgery Surgery of the Hand; ATTEND Plastic Surgery Surgery of the Hand
DX: M79.3 Panniculitis, unspecified (principal); E88.1 Lipodystrophy, not elsewhere classified; M62.08 Separation of muscle (nontraumatic), other site; L91.0 Hypertrophic scar; E03.9 Hypothyroidism, unspecified; Z79.899 Other long term (current) drug therapy; Z91.030 Bee allergy status
CPT/HCPCS: 13101; 13102; 15830; 36415; 85027; 88300; 88302; 96374; 96376; J0131; J0171; J0665; J0690; J1100; J1170; J1580; J2250; J2405; J3010

== ENCOUNTER → 2024-02-04 | Outpatient (REF) | payer OTHER ==
[~2024-02-04] MED LIST changes: -ACETAMINOPHEN 1000MG 100ML IV BAG As Ordered ONE; -HEPARIN SOD (PORCINE) 5000UNITS/ML 1ML VIAL/SYRINGE SQ ONE; -HYDROmorphone HCL 2MG/ML 1ML VIAL As Ordered ONE; -MIDAZOLAM INJ 2MG/2ML VIAL As Ordered ONE; -ONDANSETRON 4MG 2ML VIAL As Ordered ONE; -ceFAZolin SOD 2 GM in IV 1 EA IV ONE; -fentaNYL 100 MCG/2 ML INJECTION As Ordered ONE
== END ==
LOC: M SFHCADAM 10:41
PROVIDERS: ATTEND Nurse Practitioner Family
DX: L01.03 Bullous impetigo (principal)

== ENCOUNTER → 2024-04-13 | Outpatient (CLI) | payer OTHER | LOC: M WHC 07:31 | PROVIDERS: ATTEND Obstetrics & Gynecology | DX: R92.8 Other abnormal and inconclusive findings on diagnostic imaging of breast (principal) | CPT/HCPCS: 77066; G0279 ==

== ENCOUNTER → 2024-08-26 | Outpatient (REF) | payer OTHER ==
[~2024-08-26] MED LIST changes: +NYST1POW3 TOP; -NYST1POW9 TOP
== END ==
LOC: M SFHCWAGY 13:21
PROVIDERS: ATTEND Obstetrics & Gynecology
DX: Z12.4 Encounter for screening for malignant neoplasm of cervix (principal); Z01.419 Encounter for gynecological examination (general) (routine) without abnormal findings; Z77.9 Other contact with and (suspected) exposures hazardous to health

== ENCOUNTER 2025-03-30 07:59 | Day surgery (SDC) | payer OTHER ==
[~2025-03-30] VITALS: Ht 154.9 cm; Wt 92.9 kg
[~2025-03-30 07:59] MED LIST changes: +FLUT12AE2; -IBUP-1022 PO; +IBUP600T42 PO; +NORE-23 PO; -NORE1TAB94 PO
[2025-03-30 08:59] VITALS: TEMP 98.4
[2025-03-30 09:23] VITALS: BP 126/70; O2SAT 100
== END 2025-03-30 09:24 | disposition home or self-care (01) ==
LOC: M OPP 07:59
PROVIDERS: ATTEND Surgery
DX: Z12.11 Encounter for screening for malignant neoplasm of colon (principal); K57.30 Diverticulosis of large intestine without perforation or abscess without bleeding; Z91.030 Bee allergy status; Z79.899 Other long term (current) drug therapy

== ENCOUNTER → 2025-06-30 | Outpatient (REF) | payer OTHER | LOC: M SFHCDERM 16:20 | PROVIDERS: ATTEND Nurse Practitioner Family | DX: L30.4 Erythema intertrigo (principal) ==